=== PATIENT | female | born 2000 | race Caucasian/White ===

== ENCOUNTER 2022-08-20 20:06 | Inpatient (IN) ==
[2022-08-20 21:29] LABS: Appearance Urine Cloudy (Clear); Bacteria Urine Automated 1+ (Negative); Bilirubin Urine Negative (Negative); Blood Urine Trace (Negative); Color Urine Dark Yellow; Epithelial Cell Urine Auto >30 /lpf (0-5); Glucose Urine UA Negative (Negative); Ketones Urine 3+ (Negative); Leukocyte Esterase Urine 2+ (Negative); Nitrite Urine Negative (Negative); Protein Urine 1+ (Negative); Specific Gravity Urine 1.017 (1.000-1.030); Urobilinogen Urine Negative (Negative); WBC Urine Automated >30 /hpf (0-5); pH Urine 6.5 (4.5-7.5)
[2022-08-20 21:31] LABS: Basophils # (auto) 0.07 K/uL (0-0.2); Basophils % (auto) 0.5 %; Eosinophils % (auto) 0.8 %; Hematocrit (blood only) 32.5 % (37.0-47.0); Hemoglobin 10.8 g/dl (12.0-16.0); Immature Granulocytes # (auto) 0.12 K/uL (0.01-0.20); Immature Granulocytes % (auto) 0.9 %; Lymphocytes # (auto) 1.32 K/uL (1.2-3.4); Lymphocytes % (auto) 9.9 %; Mean Corpuscular Hemoglobin 26.5 pg (25.0-34.0); Mean Corpuscular Hgb Conc 33.2 g/dL (32.0-36.0); Mean Corpuscular Volume 79.9 fL (80.0-100.0); Mean Platelet Volume 10.1 fL (9.4-12.4); Monocytes # (auto) 0.75 K/uL (0.11-0.59); Monocytes % (auto) 5.6 %; Neutrophils # (auto) 10.93 K/uL (1.40-6.50); Neutrophils % (auto) 82.3 %; Platelet Count 328 K/uL (130-400); RDW Coefficient of Variation 14.6 % (11.5-14.5); RDW Standard Deviation 42.2 fL (36.4-46.3); Red Blood Count 4.07 M/uL (4.20-5.40); White Blood Count 13.29 K/ul (4.8-10.8)
[2022-08-20 21:56] LABS: Albumin Level 4.5 gm/dl (3.4-5.0); BUN Creatinine Ratio 11.6 (10-20); Calcium 10.4 mg/dl (8.5-10.1); Est GFR (African American) 145.2 ml/min; Est GFR (Non-African American) 125.3 ml/min; Globulin 4.6 gm/dl (2.5-4.0); Potassium 3.1 mmol/L (3.5-5.1); Total Protein 9.1 gm/dl (6.0-8.3)
[2022-08-20] MEDS ORDERED: cefTRIAXone SODIUM 2,000 MG/70 ML BAG IV STA (22:39)
[2022-08-20] MEDS ORDERED: SODIUM CHLORIDE 0.9% 1000ML 1,000 ML IV SCH (22:45)
[2022-08-20] MEDS ORDERED: ACETAMINOPHEN 1,000 MG/100 ML VIAL IV STA (22:49)
--- NOTE | 2022-08-20 23:15 | Emergency Department Note ---
History of Present Illness General Chief complaint: Fever Stated complaint: FEVER,CHILLS,SWEATING,SORETHROAT,BACK PAIN, UTI Time Seen by Provider: 08/20/22 22:37 History of Present Illness Maximum Pain Intensity: 5 This is a 22-year-old female presenting to the emergency department for ev aluation of fevers, chills, back pain, and UTI symptoms for the past 5 or 6 days. The patient initially went to an urgent care clinic at the onset of symptoms and was found to be as an incidental finding. She estimates that she is roughly 5 weeks , and this would be her first . The patient was started on Keflex 4 times a day and has been taking the medication as prescribed. Over the past 2 days she has developed a 101.9 F temperature at home as well as increasing back pain that is worse on the right than left. She still feels pain with urination and rates her discomfort a 5/10. The patient is usually healthy without additional chronic medical disease. She has yet to follow with [facility] for the . Past Med/Surg History Medical History Currently 5 weeks as of 08/20/2022 Surgical History No significant past surgical history Social History Smoking Status: Never smoker Feels Safe at Home: Yes Review of Systems A total of 10 systems reviewed and were otherwise negative Physical Exam Vital Signs Vital Signs - 24 hr 08/20/22 20:13 08/20/22 23:00 08/21/22 00:47 Temperature 36.9 C 36.5 C Temperature Source Temporal Artery Scan Oral Pulse Rate 141 H Pulse Rate [Finger] 100 H 73 Respiratory Rate 18 20 18 Respiratory Effort / Characteristics Non-Labored Respiratory Depth Normal Blood Pressure 142/94 H Blood Pressure [Right Arm] 134/74 102/64 Blood Pressure Mean 110 Blood Pressure Mean [Right Arm] 94 76 Blood Pressure Position [Right Arm] Pulse Oximetry 96 99 97 Oxygen Delivery Method Room Air Room Air Room Air Sepsis Recent Fever Within 48 Hours Yes Sepsis New/Unexplained Change in Mental Status No Sepsis Action Taken by Nursing No Action Required 08/21/22 02:37 08/21/22 05:00 08/21/22 07:00 Temperature Temperature Source Pulse Rate Pulse Rate [Finger] 85 67 78 Respiratory Rate 18 18 16 Respiratory Effort / Characteristics Respiratory Depth Normal Blood Pressure Blood Pressure [Right Arm] 121/66 120/75 120/78 Blood Pressure Mean Blood Pressure Mean [Right Arm] 84 90 92 Blood Pressure Position [Right Arm] Lying Pulse Oximetry 94 98 99 Oxygen Delivery Method Room Air Room Air Room Air Sepsis Recent Fever Within 48 Hours Sepsis New/Unexplained Change in Mental Status Sepsis Action Taken by Nursing VITALS: Vitals are noted on the nurse's note and reviewed by myself. Vital signs with tachycardia GENERAL: Well-developed, well-nourished, white female, who is in discomfort but overall pleasant and cooperative. HEAD: Normocephalic atraumatic. NECK: Supple without nuchal rigidity. No lymphadenopathy. No thyromegaly. Cervical spine is nontender. HEART: Regular rate and rhythm without murmurs gallops or rubs. LUNGS: Clear to auscultation bilaterally without wheezes, rales or rhonchi. No retractions or accessory muscle use. ABDOMEN: Positive normal bowel sounds x 4. Soft with mild suprapubic tenderness. There is additional left CVA tenderness. No rash. MUSCULOSKELETAL: No muscle atrophy, erythema, or edema noted. Full range of motion in all extremities. NEURO: Patient was alert and oriented to person place and time. CN II through XII grossly intact. Course Administered Medications Discontinued Medications Sodium Chloride (Nss 1000ml) 1,000 mls @ 999 mls/hr IV .Q1H1M JEWELL Stop: 08/20/22 23:45 Last Infusion: 08/20/22 23:54 Dose: 0 mls/hr Documented By: Admin: 08/20/22 22:53 Dose: 999 mls/hr Documented By: STUART Ceftriaxone Sodium (Rocephin) 2,000 mg in 70 mls @ 140 mls/hr IV NOW STA Stop: 08/20/22 23:08 Last Infusion: 08/20/22 23:54 Dose: 0 mls/hr Documented By: Admin: 08/20/22 22:53 Dose: 140 mls/hr Documented By: STUART Acetaminophen (Ofirmev) 1,000 mg in 100 mls @ 400 mls/hr IV NOW STA Stop: 08/20/22 23:03 Last Infusion: 08/20/22 23:54 Dose: 0 mls/hr Documented By: Admin: 08/20/22 22:59 Dose: 400 mls/hr Documented By: KT Medical Decision Making Differential Diagnosis Differential diagnosis: Etiologies such as biliary colic, cholecystitis, hepatitis, pancreatitis, cardiac disease, pancreatitis, gastritis, peptic ulcer disease, appendicitis, cystitis, diverticulitis, mesenteric ischemia, inflammatory bowel disease, ileus, bowel obstruction, testicular/adnexal torsion, aortic pathology, shingl es, as well as others were considered Laboratory Data 08/20/22 21:00 08/20/22 21:00 Lab Results 08/20/22 08/20/22 08/20/22 Range/Units 19:45 21:00 21:00 WBC 13.29 H (4.8-10.8) K/ul RBC 4.07 L (4.20-5.40) M/uL Hgb 10.8 L (12.0-16.0) g/dl Hct 32.5 L (37.0-47.0) % MCV 79.9 L (80.0-100.0) fL MCH 26.5 (25.0-34.0) pg MCHC 33.2 (32.0-36.0) g/dL RDW Std Deviation 42.2 (36.4-46.3) fL RDW Coeff of Raj 14.6 H (11.5-14.5) % Plt Count 328 (130-400) K/uL MPV 10.1 (9.4-12.4) fL Immature Gran % (Auto) 0.9 % Neut % (Auto) 82.3 % Lymph % (Auto) 9.9 % Mercer % (Auto) 5.6 % Eos % (Auto) 0.8 % Baso % (Auto) 0.5 % Neut # (Auto) 10.93 H (1.40-6.50) K/uL Lymph # (Auto) 1.32 (1.2-3.4) K/uL Mercer # (Auto) 0.75 H (0.11-0.59) K/uL Eos # (Auto) 0.10 (0-0.50) K/uL Baso # (Auto) 0.07 (0-0.2) K/uL Immature Gran # (Auto) 0.12 (0.01-0.20) K/uL Sodium 131 L (136-145) mmol/L Potassium 3.1 L (3.5-5.1) mmol/L Chloride 97 L (98-107) mmol/L Carbon Dioxide 22 (21-32) mmol/L Anion Gap 12 H (3-11) BUN 8 (6-23) mg/dl Creatinine 0.69 (0.6-1.2) mg/dl Est Cr Clr Drug Dosing 143.0 ml/min Est GFR ( Amer) 145.2 ml/min Est GFR (Non-Af Amer) 125.3 ml/min BUN/Creatinine Ratio 11.6 (10-20) Glucose 89 (70-99(Fasting)) mg/dl Lactate (0.4-2.0) mmol/L Calcium 10.4 H (8.5-10.1) mg/dl Total Bilirubin 1.0 (0.2-1.0) mg/dl AST 21 (13-39) U/L ALT 24 (7-52) U/L Alkaline Phosphatase 135 H (34-104) U/L Total Protein 9.1 H (6.0-8.3) gm/dl Albumin 4.5 (3.4-5.0) gm/dl Globulin 4.6 H (2.5-4.0) gm/dl Albumin/Globulin Ratio 1.0 (0.9-2) Urine Color Dark Yellow Urine Appearance Cloudy A (Clear) Urine pH 6.5 (4.5-7.5) Ur Specific Mer[place] 1.017 (1.000-1.030) Urine Protein 1+ H (Negative) Urine Glucose (UA) Negative (Negative) Urine Ketones 3+ H (Negative) Urine Blood Trace H (Negative) Urine Nitrite Negative (Negative) Urine Bilirubin Negative (Negative) Urine Urobilinogen Negative (Negative) Ur Leukocyte Esterase 2+ H (Negative) Urine WBC (Auto) >30 H (0-5) /hpf Urine RBC (Auto) 5-10 H (0-4) /hpf U Hyaline Cast (Auto) 5-10 H (0-5) /lpf U Epithel Cells (Auto) >30 H (0-5) /lpf Urine Bacteria (Auto) 1+ H (Negative) 08/20/22 Range/Units 23:36 WBC (4.8-10.8) K/ul RBC (4.20-5.40) M/uL Hgb (12.0-16.0) g/dl Hct (37.0-47.0) % MCV (80.0-100.0) fL MCH (25.0-34.0) pg MCHC (32.0-36.0) g/dL RDW Std Deviation (36.4-46.3) fL RDW Coeff of Raj (11.5-14.5) % Plt Count (130-400) K/uL MPV (9.4-12.4) fL Immature Gran % (Auto) % Neut % (Auto) % Lymph % (Auto) % Mercer % (Auto) % Eos % (Auto) % Baso % (Auto) % Neut # (Auto) (1.40-6.50) K/uL Lymph # (Auto) (1.2-3.4) K/uL Mercer # (Auto) (0.11-0.59) K/uL Eos # (Auto) (0-0.50) K/uL Baso # (Auto) (0-0.2) K/uL Immature Gran # (Auto) (0.01-0.20) K/uL Sodium (136-145) mmol/L Potassium (3.5-5.1) mmol/L Chloride (98-107) mmol/L Carbon Dioxide (21-32) mmol/L Anion Gap (3-11) BUN (6-23) mg/dl Creatinine (0.6-1.2) mg/dl Est Cr Clr Drug Dosing ml/min Est GFR ( Amer) ml/min Est GFR (Non-Af Amer) ml/min BUN/Creatinine Ratio (10-20) Glucose (70-99(Fasting)) mg/dl Lactate 0.6 (0.4-2.0) mmol/L Calcium (8.5-10.1) mg/dl Total Bilirubin (0.2-1.0) mg/dl AST (13-39) U/L ALT (7-52) U/L Alkaline Phosphatase (34-104) U/L Total Protein (6.0-8.3) gm/dl Albumin (3.4-5.0) gm/dl Globulin (2.5-4.0) gm/dl Albumin/Globulin Ratio (0.9-2) Urine Color Urine Appearance (Clear) Urine pH (4.5-7.5) Ur Specific Meriden (1.000-1.030) Urine Protein (Negative) Urine Glucose (UA) (Negative) Urine Ketones (Negative) Urine Blood (Negative) Urine Nitrite (Negative) Urine Bilirubin (Negative) Urine Urobilinogen (Negative) Ur Leukocyte Esterase (Negative) Urine WBC (Auto) (0-5) /hpf Urine RBC (Auto) (0-4) /hpf U Hyaline Cast (Auto) (0-5) /lpf U Epithel Cells (Auto) (0-5) /lpf Urine Bacteria (Auto) (Negative) Imaging Data Radiologist's Impression: Renal Ultrasound 08/20/22 22:58 RENAL ULTRASOUND CLINICAL HISTORY: +Preg. UTI. Eval for pyelo/abscess. COMPARISON STUDY: None. TECHNIQUE: Sonography of the kidneys and the urinary bladder was performed. FINDINGS: The right kidney measures 10.7 x 5.3 x 5.8 cm and the left measures 13.3 x 7.9 x 6 cm. There is no hydronephrosis. No right renal calculi are present. Echogenic foci within the left collecting system measure up to 1.8 cm. These favor calculi. Gas could appear similar but is considered less likely. Note is made of a 3.4 cm complex lesion within the upper pole of the left kidney which contains debris with fluid fluid level with possible thickened wall. Adjacent renal parenchyma is echogenic. There is associated urothelial thickening. Ureteral jets were visualized. There is bladder wall thickening. IMPRESSION: 1. No hydronephrosis. 2. 3.4 cm complex lesion within the upper pole of of the the left kidney which contains a fluid fluid level with possible thickened wall and urothelial thickening. Adjacent renal parenchyma is echogenic. Given the clinical history, this is suspicious for a renal abscess. Complex cystic renal lesion could appear similar but is considered less likely. 3. Echogenic foci within the left collecting system which measure up to 1.8 cm. These favor left renal calculi. Gas in the setting of an infectious process coul d appear similar but is considered less likely. 4. Bladder wall thickening. This may reflect cystitis. ACT 112: Negative or not required by law. Electronically signed by: Dimitri Evans M.D. 08/21/2022 6:38 AM Preliminary Findings Only See Final Report For Complete Findings US RENAL: 1.4 cm left renal pelvic calculus withou t hydronephrosis. 3 cm fluid collection in the left upper pole with a fluid debris level. Finding is concerning for either a calyceal diverticulum or an abscess. Unremarkable right kidney. Radiologist:Jonn Lemon M.D. [facility] Narrative Physical exam and history were performed. Nursing notes, EMR, and Medication List were personally reviewed. No social concerns were identified as barriers to patients care. Patient appears to have UTI symptoms for the past several days. She was started on Keflex at an urgent care clinic, but despite this continues to have worsening pain and now fevers over the past 1 to 2 days. Incidentally the patient found out that she was , and based on dates is a 5 weeks. IV access was established and labs were obtained. Blood cultures were performed. Lactic gathered. Urine collected. She was hydrated with normal saline and given IV Ty lenol. The patient's blood work is as above and was reviewed. She does have an elevated white blood cell count of 13.2. She is mildly anemic at 10.8. Potassium is 3.1. BUN and creatinine are normal. Lactic acid is normal. AST and ALT all normal. Alk phos is slightly elevated at 135. Urine appears markedly infected with blood, esterase, white cells, and bacteria. Blood and urine cultures are pending. Due to the elevated white count, fever, and concern for possible a sending urinary tract infection the patient was given 2 g IV Rocephin. She was sent to ultrasound for further imaging of her kidneys. Ultrasound was performed and reviewed by myself and radiology. The right kidney appears without significant findings, however the left kidney is concerning for a 3 cm left perinephric/renal abscess. Unfortunately this does correlate with her symptoms. I did reach out to the on-call urologist, Dr. Murphy, who also shares my concern that this is a renal abscess. Additionally there seems to be a large intrarenal kidney stone. The patient is considered high risk with the and abscess likely needs definitive interventional radiology treatment. Unfortunately we do not have this service available. Case management was brought into patient's care, and the patient is able to go to [facility]. Images were pushed to [facility]. I did reach out to [facility] in [place], and they do accept the patient in transfer. I spoke with Dr Barger from who suspects that patient will need minimum aspiration of the abscess if not full drainage. Dr. Benjamin is the accepting physician. Transfer paperwork was completed with the assistance of Dr Sanchez. Consent was signed by the patient. At this time we are awaiting bed assignment to arrange EMS transport. Case management is working on a preauthorization for ambulance transfer. The patient remained in stable condition until the time of shift change. At the time of shift change we are awaiting bed assignment and information on transfer time. The case was discussed with my colleague, Brandee Olmos PA-C, who will assume care at this time. Please see Ms. Olmos's dictation for further pa tient course, plan, and disposition time. The chart was completed utilizing [employer] Speech Voice Recognition Software. Grammatical errors, random word insertions, pronoun errors, and incomplete sentences are an occasional consequence of this system due to software limitations, ambient noise, and hardware issues. Any formal questions or concerns about the content, text, or information contained within the body of this dictation should be directly addressed to the provider for clarification. . Impression & Plan Kidney abscess, , UTI (urinary tract infection), Fever Discharge Plan Visit Data Chief Complaint: Fever Stated Complaint: FEVER,CHILLS,SWEATING,SORETHROAT,BACK PAIN, UTI ED Provider: Olivier Miller ED Midlevel Provider: Tiago Iyer Discharge Problem: Kidney abscess, , UTI (urinary tract infection), Fever Patient Disposition: Transfer Acute Care Hospital Forms Stand Alone Forms: [facility] Referrals Referrals: PCP,NO [Primary Care Provider] - : Qualifiers: Weeks of gestation: less than 8 weeks Qualified Code(s): Z3A.01 - Less than 8 weeks gestation of UTI (urinary tract infection) Qualifiers: Urinary tract infection type: acute cystitis Hematuria presence: with hematuria Qualified Code(s): N30.01 - Acute cystitis with hematuria Fever Qualifiers: Fever type: due to other condition Qualified Code(s): R50.81 - Fever presenting with conditions classified elsewhere
--- NOTE | 2022-08-21 06:40 | Ultrasound Report ---
RENAL ULTRASOUND CLINICAL HISTORY: +Preg. UTI. Eval for pyelo/abscess. COMPARISON STUDY: None. TECHNIQUE: Sonography of the kidneys and the urinary bladder was performed. FINDINGS: The right kidney measures 10.7 x 5.3 x 5.8 cm and the left measures 13.3 x 7.9 x 6 cm. Ther e is no hydronephrosis. No right renal calculi are present. Echogenic foci within the left collecting system measure up to 1.8 cm. These favor calculi. Gas could appear similar but is considered less li kortney. Note is made of a 3.4 cm complex lesion within the upper pole of the left kidney which contains debris with fluid fluid level with possible thickened wall. Adjacent renal parenchyma is echogenic. There is associated urothelial thickening. Ureteral jets were visualized. There is bladder wall thick ening. IMPRESSION: 1. No hydronephrosis. 2. 3.4 cm complex lesion within the upper pole of of the the left kidney which contains a fluid fluid level with possible thickened wall and urothelial thickening. Adjacent renal parenchyma is echogenic . Given the clinical history, this is suspicious for a renal abscess. Complex cystic renal lesion cou ld appear similar but is considered less likely. 3. Echogenic foci within the left collecting system which measure up to 1.8 cm. These favor left jacob l calculi. Gas in the setting of an infectious process could appear similar but is considered less li kortney. 4. Bladder wall thickening. This may reflect cystitis. ACT 112: Negative or not required by law. Electronically signed by: Dimitri Evans M.D. 08/21/2022 6:38 AM
--- NOTE | 2022-08-21 09:08 | Emergency Department Note ---
ED Visit Note This case was signed out to me by Tiago Iyer PA-C due to change of shift. Please refer to his dictation for full details. The patient is a 22-year-old female who is approximately 5 weeks who was found to have a 3 cm left perinephritic/renal abscess on ultrasound. The patient was awaiting transfer to [facility] in [place] for further evaluation and treatment by interventional radiology. On my initial evaluation of the patient she was in no acute distress and declined any pain. Vital signs remained stable. Around 9:30 AM Case management came to me stating that they were having problems with her insurance for the transfer to [facility]. Apparently her insurance requires a prior Auth that was not going to be available for a couple days. It was also found that since [facility] is out of network that the patient may have to pay most of the bill [id number]. I therefore discussed transfer to either [facility] or [facility] with the patient. The patient was okay with transfer to [facility]. I spoke with the transfer center at [facility] who will accept the patient in transfer. Dr. Valderrama will be the accepting physician. However, no beds were available at this time. The patient continued to be observed in the emergency department pending transfer. She did not require any additional medication or treatment while in the emergency department during my shift. The patient will be due for a second dose of Rocephin at 11 PM and order had been placed if she remained in the emergency department. Due to change in shift, the patient's care was then signed out to Brenda SOLIS. Please refer to her dictaction for further details. We had contacted [facility] and there was still no available bed at the time of change in shift. The patient's care was transferred in stable condition. : Qualifiers: Weeks of gestation: less than 8 weeks Qualified Code(s): Z3A.01 - Less than 8 weeks gestation of UTI (urinary tract infection) Qualifiers: Urinary tract infection type: acute cystitis Hematuria presence: with hematuria Qualified Code(s): N30.01 - Acute cystitis with hematuria Fever Qualifiers: Fever type: due to other condition Qualified Code(s): R50.81 - Fever presenting with conditions classified elsewhere
[2022-08-21] MEDS ORDERED: SODIUM CHLORIDE 0.9% 1000ML 1,000 ML IV SCH (17:15)
--- NOTE | 2022-08-21 18:26 | Emergency Department Note ---
ED Visit Note I received sign out from Julieta Olmos PA-C at change of shift. Patient was diagnosed with pyelonephritis and renal abscess of the left kidney. She is awaiting transfer to [facility] to be evaluated by IR for possible drainage of the abscess. We are currently awaiting bed availability. Patient has been in the ED waiting for transfer for nearly 24 hours, I rechecked with the charge nurse and personal secretary and there is still no bed availability and no idea as to when this will occur. I spoke with Dr. Marx, [facility] Hospitalist, who agreed to admit the patient in the interim while she is awaiting her transfer. I evaluated the patient, she is well-appearing, nontoxic and afebrile, hemodynamically stable. Pain is well controlled. She remains n.p.o. The patient was updated on plan for admission here while she waits for transfer, she verbalized understanding and was agreeable to the plan. The chart was completed utilizing [employer] Speech voice recognition software. Grammatical errors, random word insertions, pronoun errors, and incomplete sentences are an occasional consequence of this system due to software limitat ions, ambient noise, and hardware issues. Any formal questions or concerns about the content, text, or information contained within the body of this dictation should be directly addressed to the nurse practitioner for clarification. : Qualifiers: Weeks of gestation: less than 8 weeks Qualified Code(s): Z3A.01 - Less than 8 weeks gestation of UTI (urinary tract infection) Qualifiers: Urinary tract infection type: acute cystitis Hematuria presence: with hematuria Qualified Code(s): N30.01 - Acute cystitis with hematuria Fever Qualifiers: Fever type: due to other condition Qualified Code(s): R50.81 - Fever presenting with conditions classified elsewhere
[2022-08-21] MEDS ORDERED: ACETAMINOPHEN 325 MG TAB PO PRN (19:02)
--- NOTE | 2022-08-21 19:33 | History & Physical Report ---
Date of Service August 21, 2022 Assessment & Plan (1) Kidney abscess: Plan: REnal Abscess - US: 1. No hydronephrosis. 2. 3.4 cm complex lesion within the upper pole of of the the left kidney which contains a fluid fluid level with possible thickened wall and urothelial thickening. Adjacent renal parenchyma is echogenic. Given the clinical history, this is suspicious for a renal abscess. Complex cystic renal lesion could appear similar but is considered less likely. 3. Echogenic foci within the left collecting system which measure up to 1.8 cm. These favor left renal calculi. Gas in the setting of an infectious process could appear similar but is c onsidered less likely.4. Bladder wall thickening. This may reflect cystitis. Continue Rocephin Urology following Is not currently septic, hemodynamically stable at assessment with normal blood pressure and no tachycardia. Recommend patient be transferred for IR capability as soon as available. In the meantime we will continue antibiotics, keep n.p.o., continue fluids and follow (2) : Plan: By POC at urgent care Approximately 5 weeks Has not established with OB or had care before. Can facilitate appointments as needed with CM DVT prophylaxis: Low risk SCDs Diet: N.p.o. 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 She is subsequently seen at urgent care and was diagnosed with UTI and put on Keflex. POC test was positive at that time, patient estimates about 5 weeks . Patient did not clinically improve and continued to be febrile at home with increasing pain on Keflex and presented to the ER for further evaluation. Renal ultrasound as inpatient shows 3.4 cm complex lesion within the upper pole of of the the left kidney which contains a fluid fluid level with possible thickened wall and urothelial thickening. Adjacent renal parenchyma is echogenic. Given the clinical history, this is suspicious for a renal abscess. Patient was recommended for transfer to [place] for IR and was accepted, but no bed is yet available. Patient is not able to be transferred to [facility], [place], or [place]. Patient was in the ER as a hold for 24 hours, due to a bed delay was recommended for medical admission. Case was reviewed with urology, and as patient is not currently septic will be admitted for medical management pending transfer. At bedside she reports she feels okay, still has some left sided back pain and occasional feelings of being flushed. She does not have any chest pain, chest pressure, nausea, vomiting, diarrhea, constipation. Did have dysuria, thinks this may be a little better. Patient reports she is aware that she is , does not know how she feels about this yet. Is aware that we will avoid radiation and limit medications based on 5-week . Expressed no other questions or concerns at bedside. No medical history. Takes no chronic medications. Denies tobacco/alcohol use. Full code. Allergies Allergy/AdvReac Type Severity Reaction Status Date / Time No Known Allergies Allergy Verified 08/21/22 15:20 Home Medications Medication Instructions Recorded Confirmed Type cephalexin 500 mg capsule 500 mg PO Q6H 08/21/22 08/21/22 History Past Med/Surg History Medical History Currently 5 weeks as of 08/20/2022 Surgical History No significant past surgical history Social History Smoking Status: Never smoker Feels Safe at Home: Yes Review of Systems Review of Systems: All systems reviewed & are unremarkable except as noted in HPI & below Physical Exam Physical Exam: General: A&Ox3. NAD. Cooperative. Appears slightly flushed HEENT: Atraumatic, normocephalic. Vision/hearing intact Pulm: CTAB A&P. -wheezes, -rales, -rhonchi. Symmetrical chest rise. No increased work of breathing. No respiratory distress. Cardiac: RRR, -mrg. Radial pulses intact and symmetrical. Abdominal: Left CVA tenderness. Mild discomfort on abdominal palpation, no rebound/guarding. Extremities: Warm, dry. Sensation intact in upper and lower extremities, moves all extremities equally Results & Data Results & Data ([facility]) Vital Signs (Past 12 Hours) Vital Signs Temp Pulse Resp BP Pulse Ox O2 Del Method 08/21/22 18:35 78 19 103/56 L 95 Room Air 08/21/22 14:13 106 H 18 124/71 99 Room Air 08/21/22 12:17 37.4 C 96 H 18 128/68 99 Room Air 08/21/22 10:57 98 H 18 145/84 H 100 08/21/22 09:24 75 18 116/58 L 99 Room Air Code Status & VTE Plan VTE Prophylaxis Plan VTE Prophylaxis will be ordered: Yes PG Care Time/CCT Total # of Minutes Spent Total Time Spent with Patient: Total time spent is greater than 50% in coordination of care (as documented) at patient's floor/unit and/or counseling patient: Coding Level of Care Code 29214 INT INP/OBS CARE 2/55MIN Diagnoses Kidney abscess N15.1 Z3A.01 Weeks of gestation: less than 8 weeks (1) Weeks of gestation: less than 8 weeks Qualified Code(s): Z3A.01 - Less than 8 weeks gestation of
--- NOTE | 2022-08-21 19:51 | Urology Consultation ---
Date of Consultation August 21, 2022 Assessment & Plan (1) : (2) UTI (urinary tract infection): (3) Kidney abscess: Plan 22-year-old female who is 5 weeks who presented with concerns for UTI and possible left renal abscess based on renal ultrasound. Agree with admission here and continued antibiotics while patient awaits transfer. Do agree with transfer to a place with interventional radiology as the patient may require percutaneous drainage and we do not have that capability here. If patient were to decompensate while still here, recommend Tuttle catheter placement No surgical urologic intervention necessary at this point Urology to follow peripherally History of Present Illness Reason for Consultation: Possible left renal abscess in the setting of History of Present Illness 22-year-old female who presented to the hospital with 6 days of fever chills and back pain and burning with urination. She was afebrile with stable blood pressures. She was tachycardic initially but is now nontachycardic. Initial labs showed a leukocytosis of 13.2, creatinine of 0.69, and a urinalysis that was nitrite negative, 2+ leukocyte Estrace, greater than 30 WBCs, 5-10 RBCs and 1+ bacteria. A test was positive so they obtained a renal ultrasound which I independently reviewed. This does not show any hydronephrosis but does show a 3.4 cm complex upper pole collection in the left kidney suspicious for renal abscess. There is also an echogenic foci within the left collecting system measuring 1 to 1.8 cm which favors a renal calculus. She was started on ceftriaxone. Transfer was requested due to possible need for IR drainage as we do not have that capability here but this is still pending so she will be admitted for observation. Patient reports feeling better now than upon arrival. She has no other health issues. She does have a history of recurrent UTIs. No previous surgeries. No smoking history. No family history. Allergies Allergy/AdvReac Type Severity Reaction Status Date / Time No Known Allergies Allergy Verified 08/21/22 15:20 Home Medications Medication Instructions Recorded Confirmed Type cephalexin 500 mg capsule 500 mg PO Q6H 08/21/22 08/21/22 History Patient History Medical History Currently 5 weeks as of 08/20/2022 Surgical History No significant past surgical history Social History Smoking Status: Never smoker Feels Safe at Home: Yes Review of Systems Review of Systems: 14 point review of systems negative outside of what is listed above in HPI Physical Exam Physical Exam: General: Alert and oriented, no acute distress HEENT: Normocephalic, mucous membranes moist Pulmonary: Nonlabored respirations Abdomen: Nondistended : Mild left CVA tenderness. Extremities: Moves all 4 spontaneously Neuro: No gross deficits Skin: Warm, dry, no rashes noted Results & Data ([facility]) Vital Signs (Past 12 Hours) Vital Signs Temp Pulse Resp BP Pulse Ox O2 Del Method 08/21/22 18:35 78 19 103/56 L 95 Room Air 08/21/22 14:13 106 H 18 124/71 99 Room Air 08/21/22 12:17 37.4 C 96 H 18 128/68 99 Room Air 08/21/22 10:57 98 H 18 145/84 H 100 08/21/22 09:24 75 18 116/58 L 99 Room Air PG Care Time/CCT Total # of Minutes Spent Total Time Spent with Patient: Total time spent is greater than 50% in coordination of care (as documented) at patient's floor/unit and/or counseling patient: Coding Level of Care Code INP/OBS CONSULT LVL 3, 45 MIN Diagnoses Z3A.01 Weeks of gestation: less than 8 weeks UTI (urinary tract infection) N30.01 Hematuria presence: with hematuria Urinary tract infection type: acute cystitis Kidney abscess N15.1 (1) Weeks of gestation: less than 8 weeks Qualified Code(s): Z3A.01 - Less than 8 weeks gestation of (2) UTI (urinary tract infection) Hematuria presence: with hematuria Urinary tract infection type: acute cystitis Qualified Code(s): N30.01 - Acute cystitis with hematuria
[2022-08-21] MEDS: NORMOSOL-R 1,000 ML IV SCH (20:32)
[2022-08-21] MEDS ORDERED: cefTRIAXone SODIUM 2,000 MG/70 ML BAG IV ONE (23:00)
[2022-08-22] MEDS: NORMOSOL-R 1,000 ML IV SCH (05:08)
[2022-08-22 07:22] LABS: Basophils # (auto) 0.08 K/uL (0-0.2); Basophils % (auto) 0.7 %; Eosinophils # (auto) 0.26 K/uL (0-0.50); Eosinophils % (auto) 2.4 %; Hematocrit (blood only) 28.8 % (37.0-47.0); Hemoglobin 9.5 g/dl (12.0-16.0); Immature Granulocytes # (auto) 0.29 K/uL (0.01-0.20); Immature Granulocytes % (auto) 2.6 %; Lymphocytes # (auto) 1.97 K/uL (1.2-3.4); Lymphocytes % (auto) 17.9 %; Mean Corpuscular Hemoglobin 26.8 pg (25.0-34.0); Mean Corpuscular Volume 81.4 fL (80.0-100.0); Mean Platelet Volume 9.7 fL (9.4-12.4); Monocytes # (auto) 1.29 K/uL (0.11-0.59); Monocytes % (auto) 11.7 %; Neutrophils # (auto) 7.13 K/uL (1.40-6.50); Neutrophils % (auto) 64.7 %; Platelet Count 255 K/uL (130-400); RDW Coefficient of Variation 14.3 % (11.5-14.5); RDW Standard Deviation 42.9 fL (36.4-46.3); Red Blood Count 3.54 M/uL (4.20-5.40); White Blood Count 11.02 K/ul (4.8-10.8)
[2022-08-22 07:47] LABS: Anion Gap 10 (3-11); BUN Creatinine Ratio 12.5 (10-20); Blood Urea Nitrogen 6 mg/dl (6-23); Calcium 9.4 mg/dl (8.5-10.1); Carbon Dioxide 22 mmol/L (21-32); Chloride 103 mmol/L (98-107); Creatinine Clr Calc Pharmacy 205.2 ml/min; Est GFR (African American) > 150.0 ml/min; Est GFR (Non-African American) 141.2 ml/min; Glucose 67 mg/dl (70-99(Fasting)); Potassium 3.7 mmol/L (3.5-5.1); Sodium 135 mmol/L (136-145)
[2022-08-22] MEDS ORDERED: FLUARIX QUADRIVALENT 0.5 ML SYR IM ONE (08:00)
--- NOTE | 2022-08-22 16:08 | Discharge Summary ---
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 She is subsequently seen at urgent care and was diagnosed with UTI and put on Keflex. POC test was positive at that time, patient estimates about 5 weeks . Patient did not clinically improve and continued to be febrile at home with increasing pain on Keflex and presented to the ER for further evaluation. Renal ultrasound as inpatient shows 3.4 cm complex lesion within the upper pole of of the the left kidney which contains a fluid fluid level with possible thickened wall and urothelial thickening. Adjacent renal parenchyma is echogenic. Given the clinical history, this is suspicious for a renal abscess. Patient was recommended for transfer to [place] for IR and was accepted, but no bed is yet available. Patient is not able to be transferred to [facility], [place], or [place]. Patient was in the ER as a hold for 24 hours, due to a bed delay was recommended for medical admission. Case was reviewed with urology, and as patient is not currently septic will be admitted for medical management pending transfer. At bedside she reports she feels okay, still has some left sided back pain and occasional feelings of being flushed. She does not have any chest pain, chest pressure, nausea, vomiting, diarrhea, constipation. Did have dysuria, thinks this may be a little better. Patient reports she is aware that she is , does not know how she feels about this yet. Is aware that we will avoid radiation and limit medications based on 5-week . Expressed no other questions or concerns at bedside. No medical history. Takes no chronic medications. Denies tobacco/alcohol use. Full code. Principal Diagnosis Renal abscess Discharge Data Allergies Allergy/AdvReac Type Severity Reaction Status Date / Time No Known Allergies Allergy Verified 08/21/22 15:20 Consultations 08/21/22 18:53 ED Decision to Admit Stat 08/21/22 20:26 Consult Urology Routine Ordered Studies 08/20/22 22:58 US Kidney Bladder [US renal/blad retro comp] Urgent Hospital Course (1) Kidney abscess: Patient admitted by Dr. Marx pending bed availability/transfer to tertiary care. She was assigned to my service this morning, but prior to myself or resident physician seeing her, she was transferred to [place] early this morning. Plan below as per admitting H&P, plan ongoing as per tertiary care. REnal Abscess - US: 1. No hydronephrosis. 2. 3.4 cm complex lesion within the upper pole of of the the left kidney which contains a fluid fluid level with possible thickened wall and urothelial th ickening. Adjacent renal parenchyma is echogenic. Given the clinical history, this is suspicious for a renal abscess. Complex cystic renal lesion could appear similar but is considered less likely. 3. Echogenic foci within the left collecting system which measure up to 1.8 cm. These favor left renal calculi. Gas in the setting of an infectious process could appear similar but is considered less likely.4. Bladder wall thickening. This may reflect cystitis. Continue Rocephin Urology following Is not currently septic, hemodynamically stable at assessment with normal blood pressure and no tachycardia. Recommend patient be transferred for IR capability as soon as available. In the meantime we will continue antibiotics, keep n.p.o., continue fluids and follow (2) : By POC at urgent care Approximately 5 weeks Has not established with OB or had care before. Can facilitate appointments as needed with CM DVT prophylaxis: Low risk SCDs Diet: N.p.o. pending transfer for IR, continue IV FM CODE STATUS: Full code Dispo: Medical surgical Total Time Total Time Spent Total Time Spent (In Minutes): Not seen Discharge Plan Discharge Items Patient Disposition: Transfer Acute Care Hospital Reason For Visit: RENAL ABSCESS PENDING TRANSFER Discharge Diagnosis: Renal abscess Activity: Per Instructions section Non-emergency contact: Primary Care Provider and Urologist Call non-emergency contact if: you have any medication questions Follow-up/Referrals: PCP,NO [Primary Care Provider] - Diet: Regular Addtl Attending Provider Instructions: Renal Abscess - US:1. No hydronephrosis. 2. 3.4 cm complex lesion within the upper pole of of the the left kidney which contains a fluid fluid level with possible thickened wall and urothelial thickening. Adjacent renal parenchyma is echogenic. Given the clinical history, this is suspicious for a renal abscess. Complex cystic renal lesion could appear similar but is considered less likely. 3. Echogenic foci within the left collecting system which measure up to 1.8 cm. These favor left renal calculi. Gas in the setting of an infectious process could appear similar but is considered less likely.4. Bladder wall thickening. This may reflect cystitis. Continue Rocephin Urology following Is not currently septic, hemodynamically stable at assessment with normal blood pressure and no tachycardia. Recommend patient be transferred for IR capability as soon as available. In the meantime we will continue antibiotics, keep n.p.o., continue fluids and follow (2) : Plan: By POC at urgent care Approximately 5 weeks Has not established with OB or had care before. Can facilitate appointments as needed with CM DVT prophylaxis: Low risk SCDs Diet: N.p.o. pending transfer for IR, continue IV FM CODE STATUS: Full code Dispo: Transfer to [facility] Pending Studies at Discharge: No Stand-Alone Forms: My [facility] Skilled Items Patient informed of condition?: Yes DNR: No Discharge Level of Care: Other Communicable Disease: No Discharge Prognosis: Stable Lines: Peripheral IV Urinary Catheter: No Medications and DC Order Prescriptions: Discontinued cephalexin 500 mg capsule 500 mg PO Q6H Rx Instructions: STARTED 08/16/22 FOR 7 DAYS Discharge Orders: Discharge Order (Routine); Ordered 08/22/22 Ordered By: Juan Miguel Nunez Admission Data Admit Date/Time: 08/21/22 19:02 Attending Provider: Isaac Marx Admit Provider: Isaac Marx Primary Care Provider: PCP,NO Other Providers: Remigio Swain ; Isaac Marx Other Interventions: Discharge Summary Assessment (RN) Last Done: 08/22/22 04:36 Coding Level of Care Code None Diagnoses Kidney abscess N15.1 Z3A.01 Weeks of gestation: less than 8 weeks
[2022-08-22] MEDS ORDERED: cefTRIAXone SODIUM 2,000 MG in DEXTROSE 5% 50 ML IV SCH (23:00)
== END 2022-08-22 07:49 | disposition short-term general hospital (02) | DRG 831 ==
LOC: ED 20:06 → 3W 08-21 19:02

== ENCOUNTER 2022-09-02 19:53 | Inpatient (IN) ==
[2022-09-02] MEDS ORDERED: ACETAMINOPHEN 1,000 MG/100 ML VIAL IV STA (20:24)
[2022-09-02] MEDS ORDERED: CEFEPIME 2,000 MG/20 ML VIAL IV STA (20:38)
[2022-09-02] MEDS: SODIUM CHLORIDE 0.9% 1000ML 1,000 ML IV SCH ×2 (21:07→23:27)
[2022-09-02 21:24] LABS: Basophils # (auto) 0.06 K/uL (0-0.2); Basophils % (auto) 0.5 %; Eosinophils # (auto) 0.11 K/uL (0-0.50); Eosinophils % (auto) 0.9 %; Hematocrit (blood only) 30.6 % (37.0-47.0); Hemoglobin 10.4 g/dl (12.0-16.0); Immature Granulocytes # (auto) 0.08 K/uL (0.01-0.20); Immature Granulocytes % (auto) 0.6 %; Lymphocytes # (auto) 0.68 K/uL (1.2-3.4); Lymphocytes % (auto) 5.5 %; Mean Corpuscular Hemoglobin 26.7 pg (25.0-34.0); Mean Corpuscular Volume 78.5 fL (80.0-100.0); Mean Platelet Volume 10.2 fL (9.4-12.4); Monocytes # (auto) 0.68 K/uL (0.11-0.59); Monocytes % (auto) 5.5 %; Neutrophils # (auto) 10.83 K/uL (1.40-6.50); Platelet Count 365 K/uL (130-400); RDW Standard Deviation 42.2 fL (36.4-46.3); White Blood Count 12.44 K/ul (4.8-10.8)
[2022-09-02 21:37] LABS: Appearance Urine Clear (Clear); Bacteria Urine Automated Negative (Negative); Bilirubin Urine Negative (Negative); Blood Urine 2+ (Negative); Color Urine Yellow; Epithelial Cell Urine Auto >30 /lpf (0-5); Glucose Urine UA Negative (Negative); Ketones Urine Negative (Negative); Leukocyte Esterase Urine 1+ (Negative); Nitrite Urine Negative (Negative); Protein Urine 2+ (Negative); RBC Urine Automated >30 /hpf (0-4); Specific Gravity Urine 1.008 (1.000-1.030); Urobilinogen Urine Negative (Negative)
[2022-09-02 22:11] LABS: Influenza A virus by PCR Negative (Neg); Influenza B virus by PCR Negative (Neg); RSV by PCR Negative (Neg); SARS CoV2 RNA(COVID-19) Ceph NEGATIVE (Negative)
[2022-09-02 22:32] LABS: Alanine Aminotransferase 18 U/L (7-52); Albumin Level 3.9 gm/dl (3.4-5.0); Alkaline Phosphatase 84 U/L (34-104); Anion Gap 8 (3-11); Aspartate Aminotransferase 13 U/L (13-39); BUN Creatinine Ratio 11.1 (10-20); Bilirubin Direct 0.1 mg/dl (0-0.2); Bilirubin,Total 0.4 mg/dl (0.2-1.0); Blood Urea Nitrogen 5 mg/dl (6-23); Calcium 9.2 mg/dl (8.5-10.1); Carbon Dioxide 20 mmol/L (21-32); Chloride 104 mmol/L (98-107); Creatinine Clr Calc Pharmacy 209.7 ml/min; Est GFR (African American) > 150.0 ml/min; Est GFR (Non-African American) 144.2 ml/min; Glucose 90 mg/dl (70-99(Fasting)); Magnesium 1.7 mg/dl (1.7-2.4); Potassium 3.5 mmol/L (3.5-5.1); Sodium 132 mmol/L (136-145); Total Protein 7.5 gm/dl (6.0-8.3)
--- NOTE | 2022-09-03 00:51 | History & Physical Report ---
Date of Service September 03, 2022 Assessment & Plan (1) Fever: Plan: 22yo Female PMH depression currently 7 weeks here for fever ongoing 1 day. Fever -given cefepime in ED -CXR negative -statrad renal ultrasound found cyst in left upper pole, kidney stone in left lower pole, patent uretal jets b/l, stent located in bladder -elevated WBC 12.44, lactate procal neg -will continue cefepime -PRN tylenol -UA + for infection -blood cultures and urine cultures pending -consulted Urology for stent removal Anemia -hbg 10.4 noted earlier this year -continue vitamin supplement with iron 7 weeks - ultrasound confirmed live fetus -continue vitamins -consulted OBGYN -avoid radiation imaging at this time -prior visit patient had not found OBGYN yet FENa: regular Code Status: full Dispo: med/surg Lillian Le D.O. PGY 2, FCM (2) UTI (urinary tract infection): (3) : History of Present Illness Chief Complaint: Fever Primary Care Provider: NO PCP 22yo Female PMH depression currently 7 weeks here for fever ongoing 1 day. Patient states several weeks ago she came to [facility] was found to be concerning for left kidney abcess transferred to [facility] for IR. Also noted to have a kidney stone in L lower pole. At [facility] they determined she did not have an abcess more likely to be a cyst, placed her on antibiotics cefuroxime, placed a stent in her left kidney sent her home. Patient states since she left the hospital she has been getting more urinary frequency, as of today began having fever chills fatigue SOB with exertion nausea confusion brain fog burning with urination and constipation. Several weeks ago prior to hospitalization, patient discovered she was , discontinued her celexa at that time. Patient denies any other PMH or medications, not on alcohol or smoking. Allergies Allergy/AdvReac Type Severity Reaction Status Date / Time No Known Allergies Allergy Verified 09/02/22 21:35 Home Medications Medication Instructions Recorded Confirmed Type cefuroxime axetil 500 mg tablet 500 mg PO BID 09/02/22 09/02/22 History multivit-iron 18 mg-folic acid 400 1 tab PO DAILY 09/02/22 09/02/22 History mcg-calcium 500 mg-minerals tablet (Women's One Daily) Past Med/Surg History Medical History Currently 5 weeks as of 08/20/2022 Surgical History No significant past surgical history Social History Smoking Status: Never smoker Hx Alcohol Use: No Hx Substance Use: No Preferred Language: Jordanian Communication Ability: Effective Engineering Consultant Required: No Beliefs That Will Affect Care: None Current Living Situation: Other Current Living Situation Comment: Lives in an apartment with roommates Feels Safe at Home: Yes Assistive Devices: None Review of Systems Review of Systems: see hpi Physical Exam Constitutional: WD/WN, vitals as above cooperative and comfortable Eyes: PERRL, conjunctivae normal, anicteric sclerae ENMT: external ear and nose normal, oropharynx normal Neck: trachea midline, no thyromegaly Respiratory: normal respiratory effort, lungs clear to auscultation Cardiovascular: RRR, no murmur, no edema Gastrointestinal (Abdomen): Inspection/Auscultation: abdomen normal to inspection Percussion/Palpation: abdomen soft mild periumbilical tenderness on palpation Skin: no rashes, warm and dry Results & Data Results & Data ([facility]) Vital Signs (Past 12 Hours) Vital Signs Temp Pulse Resp BP BP Pulse Ox O2 Del Method 09/03/22 00:00 92 H 19 100 09/02/22 23:50 97 H 22 99 09/02/22 23:40 94 H 21 99 09/02/22 23:30 95 H 21 98 09/02/22 23:29 20 112/64 98 Room Air 09/02/22 23:00 98 Room Air 09/02/22 21:25 134 H 09/02/22 20:15 38.2 C H 156 H 16 144/93 H 98 Room Air Resident Activity Tracking Resident Involvement: Resident Care Provided Care Provided: Adult Hospital Medicine (1) Fever Fever type: due to other condition Qualified Code(s): R50.81 - Fever presenting with conditions classified elsewhere (2) UTI (urinary tract infection) Hematuria presence: with hematuria Urinary tract infection type: acute cystitis Qualified Code(s): N30.01 - Acute cystitis with hematuria (3) Weeks of gestation: less than 8 weeks Qualified Code(s): Z3A.01 - Less than 8 weeks gestation of
[2022-09-03] MEDS: SODIUM CHLORIDE 0.9% 1000ML 1,000 ML IV SCH ×5 (01:08→18:10)
--- NOTE | 2022-09-03 01:23 | Emergency Department Note ---
History of Present Illness General Chief complaint: Fever Stated complaint: FEVER,CHILLS,SOB,HX OF KIDNEY INFECTION Time Seen by Provider: 09/02/22 20:22 History of Present Illness Provider complaint: Fever Onset (ago): hour(s) 7 Maximum Pain Intensity: 3 Associated symptoms: + fever/chills 22-year-old female at 8 weeks presents emergency department for fever. Patient states she started having fever at 3 PM and left-sided flank pain with dysuria. No hematuria. No nausea or vomiting. No chest pain difficulty breathing or cough. No headaches. Patient states she was recently discharged from [facility] 1 week ago on cefuroxime after having a stent placed in her ureter. Patient states she was sent there after being admitted at this facility and was transferred to [facility] because they were concerned she had a renal abscess. Patient reports that once that she got to [facility] they told her she did not have a renal abscess but instead had a renal cyst, she states no surgical or interventional radiology procedure was performed on her. Home Medications Medication Instructions Recorded Confirmed Type cefuroxime axetil 500 mg tablet 500 mg PO BID 09/02/22 09/02/22 History multivit-iron 18 mg-folic acid 400 1 tab PO DAILY 09/02/22 09/02/22 History mcg-calcium 500 mg-minerals tablet (Women's One Daily) Allergies Allergy/AdvReac Type Severity Reaction Status Date / Time No Known Allergies Allergy Verified 09/02/22 21:35 Past Med/Surg History Medical History Currently 5 weeks as of 08/20/2022 UTI (urinary tract infection) Surgical History No significant past surgical history Social History Smoking Status: Never smoker Hx Alcohol Use: No Hx Substance Use: No Preferred Language: Turkmen Communication Ability: Effective 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 Required: No Beliefs That Will Affect Care: None Current Living Situation: Other Current Living Situation Comment: Lives in an apartment with roommates Feels Safe at Home: Yes Assistive Devices: None Physical Exam Vital Signs Vital Signs - 24 hr 09/02/22 20:15 09/02/22 21:25 09/02/22 23:00 Temperature 38.2 C H Temperature Source Temporal Artery Scan Pulse Rate 156 H 134 H Pulse Rate from SpO2 Sensor Respiratory Rate 16 Respiratory Effort / Characteristics Non-Labored Spontaneous Respiratory Depth Normal Respiratory Pattern Regular Blood Pressure 144/93 H Blood Pressure [Right Arm] Blood Pressure Mean 110 Blood Pressure Mean [Right Arm] Pulse Oximetry 98 98 Oxygen Delivery Method Room Air Room Air Sepsis Recent Fever Within 48 Hours Yes Sepsis New/Unexplained Change in Mental Status N/A Sepsis Action Taken by Nursing No Action Required 09/02/22 23:29 09/02/22 23:30 09/02/22 23:40 Temperature Temperature Source Pulse Rate 95 H 94 H Pulse Rate from SpO2 Sensor Respiratory Rate 20 21 21 Respiratory Effort / Characteristics Non-Labored Spontaneous Respiratory Depth Normal Respiratory Pattern Blood Pressure Blood Pressure [Right Arm] 112/64 Blood Pressure Mean Blood Pressure Mean [Right Arm] 80 Pulse Oximetry 98 98 99 Oxygen Delivery Method Room Air Sepsis Recent Fever Within 48 Hours Sepsis New/Unexplained Change in Mental Status Sepsis Action Taken by Nursing 09/02/22 23:50 09/03/22 00:00 09/03/22 00:04 Temperature Temperature Source Pulse Rate 97 H 92 H 99 H Pulse Rate from SpO2 Sensor 99 H Respiratory Rate 22 19 19 Respiratory Effort / Characteristics Respiratory Depth Respiratory Pattern Blood Pressure 119/65 Blood Pressure [Right Arm] Blood Pressure Mean 83 Blood Pressure Mean [Right Arm] Pulse Oximetry 99 100 100 Oxygen Delivery Method Sepsis Recent Fever Within 48 Hours Sepsis New/Unexplained Change in Mental Status Sepsis Action Taken by Nursing 09/03/22 00:10 09/03/22 00:15 09/03/22 00:20 Temperature Temperature Source Pulse Rate 94 H 92 H 93 H Pulse Rate from SpO2 Sensor 94 H 92 H 95 H Respiratory Rate 20 20 19 Respiratory Effort / Characteristics Respiratory Depth Respiratory Pattern Blood Pressure 109/64 Blood Pressure [Right Arm] Blood Pressure Mean 79 Blood Pressure Mean [Right Arm] Pulse Oximetry 100 100 100 Oxygen Delivery Method Sepsis Recent Fever Within 48 Hours Sepsis New/Unexplained Change in Mental Status Sepsis Action Taken by Nursing 09/03/22 00:32 09/03/22 00:40 09/03/22 00:45 Temperature Temperature Source Pulse Rate 102 H 110 H Pulse Rate from SpO2 Sensor 103 H 111 H Respiratory Rate 21 22 Respiratory Effort / Characteristics Respiratory Depth Respiratory Pattern Blood Pressure 130/74 116/74 Blood Pressure [Right Arm] Blood Pressure Mean 92 88 Blood Pressure Mean [Right Arm] Pulse Oximetry 100 100 Oxygen Delivery Method Sepsis Recent Fever Within 48 Hours Sepsis New/Unexplained Change in Mental Status Sepsis Action Taken by Nursing 09/03/22 00:50 09/03/22 01:00 Temperature Temperature Source Pulse Rate 110 H 103 H Pulse Rate from SpO2 Sensor 117 H 105 H Respiratory Rate 20 21 Respiratory Effort / Characteristics Respiratory Depth Respiratory Pattern Blood Pressure 121/75 Blood Pressure [Right Arm] Blood Pressure Mean 90 Blood Pressure Mean [Right Arm] Pulse Oximetry 99 99 Oxygen Delivery Method Sepsis Recent Fever Within 48 Hours Sepsis New/Unexplained Change in Mental Status Sepsis Action Taken by Nursing Physical Exam GENERAL: She is oriented to person, place, and time. She appears well-developed and well-nourished. She does not appear distressed. HENT: Exam performed. -Head: Normocephalic and atraumatic. -Right Ear: External ear normal. No mastoid tenderness. -Left Ear: External ear normal. No mastoid tenderness. -Mouth/Throat: The oropharynx is clear and moist. No trismus in the jaw. No dental abscesses or uvula swelling. No oropharyngeal exudate or tonsillar abscesses. EYES: Conjunctivae and EOM are normal. Pupils are equal, round, and reactive to light. Right eye exhibits no discharge. Left eye exhibits no discharge. No scleral icterus. NECK: Normal range of motion. Neck supple. No JVD present. No spinous process tenderness present. No carotid bruit present. No rigidity. No tracheal deviation and normal range of motion present. No Brudzinski's sign and no Kernig's sign no georgette. CV: Tachycardic rate, regular rhythm, normal heart sounds and intact distal pulses. There is no peripheral edema. Palpable radial pulses bue. PULM/CHEST: Effort normal and breath sounds normal. No respiratory distress. No stridor. She has no wheezes. She has no rales. -Chest Wall: She exhibits no tenderness. ABD: The abdomen is soft. Bowel sounds are normal. She has no distension. No mas s is present. There is no tenderness. There is no rebound, no guarding, no Arriaga's sign and no tenderness at McBurney's point. Rovsig negative. No CVA tenderness bilaterally. MUSC/SKEL: Normal range of motion. There is no peripheral edema, tenderness or deformity. LYMPH: No cervical adenopathy. NEURO: She is alert and oriented to person, place, and time. She has normal strength. No cranial nerve deficit or sensory deficit. Coordination and gait normal. GCS eye subscore is 4. GCS verbal subscore is 5. GCS motor subscore is 6. Cerebellar tests wnl. SKIN: Skin is warm and dry. She is not diaphoretic. PSYCH: She has a normal mood and affect. Behavior is normal. Judgment and thought content normal. Course Course 2021: The patient was evaluated in room C2. A complete history and physical exam was performed Cardiac monitoring: An order was placed for continuous cardiac monitoring. The monitor shows a rate of 140 with sinus tachycardia rhythm interpreted by [place] Sepsis protocols were initiated. External medical records reviewed. Patient was admitted to this facility from August 20 to August 22, 2022. Patient was placed on Rocephin and the patient was transferred to [facility] for possible IR drainage of a possible renal abscess. Urine and blood cultures were all negative from this admission. Patient again states that she did not have any interventional radiology or surgical procedure performed she did have a ureteral stent placed by urology at [facility] and she was told by urology at [facility] that she does not have a renal abscess but instead has a renal cyst that does not need any intervention. Patient has been taking cefuroxime prescribed to her by the doctors at [facility]. Sepsis protocols were initiated. 2 L IV fluids were given. Given that the patient has been taking cefuroxime and is still febrile will give cefepime 2 g IV. 0006: Vital signs improved. Labs show a normal lactic acid, negative procalcitonin, minimal leukocytosis of 12.4. Urinalysis is negative for bacteria and is contaminated sample with greater than 30 epithelial cells. COVID and influenza negative. Chest x-ray negative. Pelvic OB ultrasound shows live IUP at 8 weeks 5 days with a heart rate of 181. Renal ultrasound shows a 1.2 cm left lower pole stone and left upper pole renal cyst measuring 1.3 x 1.1 cm with no hydronephrosis. Discussed case with on-call urology Dr. Murphy. Dr. Murphy states that there is no emergent urological intervention needed and no need for emergent transfer from a urological standpoint. He states his team can follow the patient and follow cultures on the patient. Discussed case with [facility] hospitalist Dr. Whalen who will evaluate the patient for admission. Administered Medications Sodium Chloride (Nss 1000ml) 1,000 mls @ 125 mls/hr IV .Q8H JEWELL Stop: 10/02/22 23:44 Last Admin: 09/03/22 01:08 Dose: 125 mls/hr Documented By: FREDY Discontinued Medications Sodium Chloride (Nss 1000ml) 1,000 mls @ 999 mls/hr IV .Q1H1M JEWELL Stop: 09/02/22 22:30 Last Infusion: 09/03/22 01:12 Dose: 0 mls/hr Documented By: Admin: 09/02/22 23:27 Dose: 999 mls/hr Documented By: Infusion: 09/02/22 22:08 Dose: 999 mls/hr Documented By: Admin: 09/02/22 21:07 Dose: 999 mls/hr Documented By: VAIBHAV Acetaminophen (Ofirmev) 1,000 mg in 100 mls @ 400 mls/hr IV NOW STA Stop: 09/02/22 20:38 Last Infusion: 09/02/22 22:40 Dose: 0 mls/hr Documented By: Admin: 09/02/22 21:11 Dose: 400 mls/hr Documented By: VAIBHAV Cefepime HCl (Maxipime) 2,000 mg in 20 mls @ 5 mls/min IV NOW STA; Protocol Stop: 09/02/22 20:41 Last Admin: 09/02/22 21:07 Dose: 5 mls/min Documented By: VAIBHAV Medical Decision Making Medical Records Attestation: I reviewed the patient's medical records. External medical records reviewed. Patient was admitted to this facility from August 20 to August 22, 2022. Patient was placed on Rocephin and the patient was transferred to [facility] for possible IR drainage of a possible renal abscess. Urine and blood cultures were all negative from this admission. Laboratory Data Attestation: I reviewed the patient's lab results. 09/02/22 20:58 09/02/22 21:47 Lab Results 09/02/22 09/02/22 09/02/22 Range/Units 20:58 20:58 20:58 WBC 12.44 H (4.8-10.8) K/ul RBC 3.90 L (4.20-5.40) M/uL Hgb 10.4 L (12.0-16.0) g/dl Hct 30.6 L (37.0-47.0) % MCV 78.5 L (80.0-100.0) fL MCH 26.7 (25.0-34.0) pg MCHC 34.0 (32.0-36.0) g/dL RDW Std Deviation 42.2 (36.4-46.3) fL RDW Coeff of Raj 15.0 H (11.5-14.5) % Plt Count 365 (130-400) K/uL MPV 10.2 (9.4-12.4) fL Immature Gran % (Auto) 0.6 % Neut % (Auto) 87.0 % Lymph % (Auto) 5.5 % [place] % (Auto) 5.5 % Eos % (Auto) 0.9 % Baso % (Auto) 0.5 % Neut # (Auto) 10.83 H (1.40-6.50) K/uL Lymph # (Auto) 0.68 L (1.2-3.4) K/uL [place] # (Auto) 0.68 H (0.11-0.59) K/uL Eos # (Auto) 0.11 (0-0.50) K/uL Baso # (Auto) 0.06 (0-0.2) K/uL Immature Gran # (Auto) 0.08 (0.01-0.20) K/uL Sodium Cancelled Potassium Cancelled Chloride Cancelled Carbon Dioxide Cancelled Anion Gap Cancelled BUN Cancelled Creatinine Cancelled Est Cr Clr Drug Dosing Cancelled Est GFR ( Amer) Cancelled Est GFR (Non-Af Amer) Cancelled BUN/Creatinine Ratio Cancelled Glucose Cancelled Lactate 1.5 (0.4-2.0) mmol/L Calcium Cancelled Magnesium Cancelled Total Bilirubin Cancelled Direct Bilirubin Cancelled AST Cancelled ALT Cancelled Alkaline Phosphatase Cancelled Troponin I High Sens 4.8 (0-14) pg/ml Total Protein Cancelled Albumin Cancelled Procalcitonin HCG, Quant mIU/ml Urine Color Urine Appearance (Clear) Urine pH (4.5-7.5) Ur Specific [place] (1.000-1.030) Urine Protein (Negative) Urine Glucose (UA) (Negative) Urine Ketones (Negative) Urine Blood (Negative) Urine Nitrite (Negative) Urine Bilirubin (Negative) Urine Urobilinogen (Negative) Ur Leukocyte Esterase (Negative) Urine WBC (Auto) (0-5) /hpf Urine RBC (Auto) (0-4) /hpf U Hyaline Cast (Auto) (0-5) /lpf U Epithel Cells (Auto) (0-5) /lpf Urine Bacteria (Auto) (Negative) SARS-CoV-2 (PCR) (Negative) Influenza Type A (PCR) (Neg) Influenza Type B (PCR) (Neg) RSV (RT-PCR) (Neg) 09/02/22 09/02/22 09/02/22 Range/Units 20:58 20:58 21:09 WBC (4.8-10.8) K/ul RBC (4.20-5.40) M/uL Hgb (12.0-16.0) g/dl Hct (37.0-47.0) % MCV (80.0-100.0) fL MCH (25.0-34.0) pg MCHC (32.0-36.0) g/dL RDW Std Deviation (36.4-46.3) fL RDW Coeff of Raj (11.5-14.5) % Plt Count (130-400) K/uL MPV (9.4-12.4) fL Immature Gran % (Auto) % Neut % (Auto) % Lymph % (Auto) % [place] % (Auto) % Eos % (Auto) % Baso % (Auto) % Neut # (Auto) (1.40-6.50) K/uL Lymph # (Auto) (1.2-3.4) K/uL [place] # (Auto) (0.11-0.59) K/uL Eos # (Auto) (0-0.50) K/uL Baso # (Auto) (0-0.2) K/uL Immature Gran # (Auto) (0.01-0.20) K/uL Sodium Potassium Chloride Carbon Dioxide Anion Gap BUN Creatinine Est Cr Clr Drug Dosing Est GFR ( Amer) Est GFR (Non-Af Amer) BUN/Creatinine Ratio Glucose Lactate (0.4-2.0) mmol/L Calcium Magnesium Total Bilirubin Direct Bilirubin AST ALT Alkaline Phosphatase Troponin I High Sens (0-14) pg/ml Total Protein Albumin Procalcitonin Cancelled HCG, Quant 30419 mIU/ml Urine Color Urine Appearance (Clear) Urine pH (4.5-7.5) Ur Specific [place] (1.000-1.030) Urine Protein (Negative) Urine Glucose (UA) (Negative) Urine Ketones (Negative) Urine Blood (Negative) Urine Nitrite (Negative) Urine Bilirubin (Negative) Urine Urobilinogen (Negative) Ur Leukocyte Esterase (Negative) Urine WBC (Auto) (0-5) /hpf Urine RBC (Auto) (0-4) /hpf U Hyaline Cast (Auto) (0-5) /lpf U Epithel Cells (Auto) (0-5) /lpf Urine Bacteria (Auto) (Negative) SARS-CoV-2 (PCR) NEGATIVE (Negative) Influenza Type A (PCR) Negative (Neg) Influenza Type B (PCR) Negative (Neg) RSV (RT-PCR) Negative (Neg) 09/02/22 09/02/22 09/02/22 Range/Units 21:09 21:44 21:47 WBC (4.8-10.8) K/ul RBC (4.20-5.40) M/uL Hgb (12.0-16.0) g/dl Hct (37.0-47.0) % MCV (80.0-100.0) fL MCH (25.0-34.0) pg MCHC (32.0-36.0) g/dL RDW Std Deviation (36.4-46.3) fL RDW Coeff of Raj (11.5-14.5) % Plt Count (130-400) K/uL MPV (9.4-12.4) fL Immature Gran % (Auto) % Neut % (Auto) % Lymph % (Auto) % [place] % (Auto) % Eos % (Auto) % Baso % (Auto) % Neut # (Auto) (1.40-6.50) K/uL Lymph # (Auto) (1.2-3.4) K/uL [place] # (Auto) (0.11-0.59) K/uL Eos # (Auto) (0-0.50) K/uL Baso # (Auto) (0-0.2) K/uL Immature Gran # (Auto) (0.01-0.20) K/uL Sodium 132 L Potassium 3.5 Chloride 104 Carbon Dioxide 20 L Anion Gap 8 BUN 5 L Creatinine 0.45 L Est Cr Clr Drug Dosing 209.7 Est GFR ( Amer) > 150.0 Est GFR (Non-Af Amer) 144.2 BUN/Creatinine Ratio 11.1 Glucose 90 Lactate (0.4-2.0) mmol/L Calcium 9.2 Magnesium 1.7 Total Bilirubin 0.4 Direct Bilirubin 0.1 AST 13 ALT 18 Alkaline Phosphatase 84 Troponin I High Sens (0-14) pg/ml Total Protein 7.5 Albumin 3.9 Procalcitonin < 0.05 HCG, Quant mIU/ml Urine Color Yellow Urine Appearance Clear (Clear) Urine pH 7.0 (4.5-7.5) Ur Specific [place] 1.008 (1.000-1.030) Urine Protein 2+ H (Negative) Urine Glucose (UA) Negative (Negative) Urine Ketones Negative (Negative) Urine Blood 2+ H (Negative) Urine Nitrite Negative (Negative) Urine Bilirubin Negative (Negative) Urine Urobilinogen Negative (Negative) Ur Leukocyte Esterase 1+ H (Negative) Urine WBC (Auto) 10-30 H (0-5) /hpf Urine RBC (Auto) >30 H (0-4) /hpf U Hyaline Cast (Auto) 1-5 (0-5) /lpf U Epithel Cells (Auto) >30 H (0-5) /lpf Urine Bacteria (Auto) Negative (Negative) SARS-CoV-2 (PCR) (Negative) Influenza Type A (PCR) (Neg) Influenza Type B (PCR) (Neg) RSV (RT-PCR) (Neg) Imaging Data Attestation: I personally reviewed and interpreted this imaging study as follows: My Impression: Chest x-ray negative. Airway clear. No pneumothorax. No consolidation. No cardiomegaly or cephalization.. No free air under the diaphragm. No fractures of the skeletal structures. Radiologist's Impression: PreliminaryFindingsOnly See Final Report For Complete Findings US OB 1st TRIMESTER: Single, live intrauterine gestation with an estimated gestational age of 8weeks 5 days 5 days. Estimated deliverydate [birth year]/09/[birth year]23. heart rate: 181 bpm. Nonvisualized right ovary. Normal blood flowin the left ovary. No adnexal mass or free fluid. Radiologist: Philip Kruger MD Study ready at 23:13 and initial results transmitted at 23:28 PreliminaryFindingsOnly See Final Report For Complete Findings US RENAL: Right kidney:No hydronephrosis or nephrolithiasis. Left kidney:No hydronephrosis. 1.2 cmleft lower pole stone. Left upper pole renal cyst measures 1.3 x 1.1 cm. Urinarybladder:Bilateral ureteral jets are identified. IMPRESSION: 1.2 cmleft lower pole stone. No hydronephrosis. Radiologist: Philip Kruger MD Study ready at 23:13 and initial results transmitted at 23:33 MDM Narrative 2021: The patient was evaluated in room C2. A complete history and physical exam was performed Cardiac monitoring: An order was placed for continuous cardiac monitoring. The monitor shows a rate of 140 with sinus tachycardia rhythm interpreted by [place] Sepsis protocols were initiated. External medical records reviewed. Patient was admitted to this facility from August 20 to August 22, 2022. Patient was placed on Rocephin and the patient was transferred to [facility] for possible IR drainage of a possible renal abscess. Urine and blood cultures were all negative from this admission. Patient again states that she did not have any interventional radiology or surgical procedure performed she did have a ureteral stent placed by urology at [facility] and she was told by urology at [facility] that she does not have a renal abscess but instead has a renal cyst that does not need any intervention. Patient has been taking cefuroxime prescribed to her by the doctors at [facility]. Sepsis protocols were initiated. 2 L IV fluids were given. Given that the p atient has been taking cefuroxime and is still febrile will give cefepime 2 g IV. 0006: Vital signs improved. Labs show a normal lactic acid, negative procalcitonin, minimal leukocytosis of 12.4. Urinalysis is negative for bacteria and is contaminated sample with greater than 30 epithelial cells. COVID and influenza negative. Chest x-ray negative. Pelvic OB ultrasound shows live IUP at 8 weeks 5 days with a heart rate of 181. Renal ultrasound shows a 1.2 cm left lower pole stone and left upper pole renal cyst measuring 1.3 x 1.1 cm with no hydronephrosis. Discussed case with on-call urology Dr. Murphy. Dr. Murphy states that there is no emergent urological intervention needed and no need for emergent transfer from a urological standpoint. He states his team can follow the patient and follow cultures on the patient. Discussed case with [facility] hospitalist Dr. Whalen who will evaluate the patient for admission. Impression & Plan Sepsis, Currently Discharge Plan Visit Data Chief Complaint: Fever Stated Complaint: FEVER,CHILLS,SOB,HX OF KIDNEY INFECTION ED Provider: Billy Rojas Discharge Problem: Sepsis, Currently Patient Disposition: Being Evaluated by Hospitalist Forms Stand Alone Forms: My [facility] Prescriptions Prescriptions: No Action cefuroxime axetil 500 mg tablet 500 mg PO BID Rx Instructions: STARTED 08/26/22 FOR 14 DAYS. Women's One Daily 18 mg iron-400 mcg-500 mg Ca Tablet 1 tab PO DAILY Referrals Referrals: PCP,NO [Primary Care Provider] -
[2022-09-03] MEDS ORDERED: POLYETHYLENE (MIRALAX) 17 GM PACK PO PRN (02:11)
[2022-09-03] MEDS: ACETAMINOPHEN 325 MG TAB PO PRN ×2 (02:41→07:58)
--- NOTE | 2022-09-03 02:44 | Consultation ---
Date of Consultation September 03, 2022 Assessment & Plan (1) : (2) Fever: Plan Patient admitted for complicated UTI, ? sepsis. stent. She has a viable iup measuring 8 5/7 weeks for EDC of 04/09/23. Urology is consulted and best to manage this patient given her situation. Await blood cultures and urine cultures for appropriate treatment per urology. Cefipime is safe in as are all cephalosporin antibiotics. Appropriate antibiotic choice based on culture results in the setting of what is safe in . Would continue with tylenol for pain and avoid nsaids. ok for zofran or phenergan for nausea. During the , if she elects to continue, she will likely require Q monthly urine cultures for evaluation. Urology may recommend antibiotic suppression and will comply with those recommendations. She will need to set up new ob visits with our office or the office of her choice as needed. She is ,however , considering termination. She should contact [facility] for information regarding obtaining these services talha as she is already 8 weeks and may soon be past/or possibly already past timing for medical termination. She was given my name and office number should she require our services. Doppler confirms viable . Unless something changes in her clinical status regarding (bleeding, cramping, etc), will sign off and leave primary management to medicine/urology. Thank you for this consult and please contact us if we can be of further help in the care of this very pleasant young lady. 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 Hx significant for presentation to ED on 08/20. Evaluation for fever/chills/back pain and UTI sx for 5-6 days. Evaluated with elevated WBC, fever, urine concerning for infection. Renal ultrasound showed a 3.4cm lesion of the left upper kidney suspicious for abscess and a probable renal stone in the left collecting system. She was given Rocephin, discussed with urology and because of the abscess was transferred to [facility] for evaluation for the need for IR for treatment. Patient was told there that no abscess only cyst but did have a left renal stent placed. Was sent home on Cefuroxine about a week ago. Blood cultures and urine cultures were negative. Represents today about 1 week after being d/c from [place] with fever, chills, nausea and sob. Renal ultrasound shows (per ED report) a 1.2cm left upper pole cyst measuring 1.3cm and left ureteral stent. Pelvic ultrasound (pictures reviewed by me) shows a viable IUP, HR 181, measuring 8 5/7 weeks for EDC of 04/09/23. Normal appearing adnexa. WBC today mildly elevated 12.4, slightly anemic with hgb 10.4 but consistent with prior, circle beveler normal. Initial pulse on admission was 156, now 90-100s, initial blood pressure 144/93, now 120s/60s, Tmas 38.2, now 37.2. Urine continues to be consistent with UTI, although blood could be from stent. Currently on IV cefipime and tylenol for pain. I am consulted for routine ob consult. Patient notes this is an unplanned . Was not on any hormonal control. She is considering termination. 8 5/7 by ultrasound today and dating would likely be based on this US--formal report pending . Has not established any care locally. She notes she is having cramping, but unsure if this is related to bladder or uterus. She notes no bleeding. Discovered when she went to urgent care center prior to her first ED visit, so very new diagnosis. Allergies Allergy/AdvReac Type Severity Reaction Status Date / Time No Known Allergies Allergy Verified 09/02/22 21:35 Home Medications Medication Instructions Recorded Confirmed Type cefuroxime axetil 500 mg tablet 500 mg PO BID 09/02/22 09/02/22 History multivit-iron 18 mg-folic acid 400 1 tab PO DAILY 09/02/22 09/02/22 History mcg-calcium 500 mg-minerals tablet (Women's One Daily) Patient History Medical History Currently 5 weeks as of 08/20/2022 UTI (urinary tract infection) Surgical History No significant past surgical history Social History Smoking Status: Never smoker Hx Alcohol Use: No Hx Substance Use: No Preferred Language: Grenadian Communication Ability: Effective Audio Visual Project Manager Required: No Beliefs That Will Affect Care: None Current Living Situation: Other Current Living Situation Comment: APARTMENT WITH ROOMMATES Feels Safe at Home: Yes Safety Concerns: Feels Safe At This Time Assistive Devices: None Physical Exam Constitutional: WD/WN, vitals as above (resting when I entered the room) Cardiovascular: Extremities: no calf tenderness and no edema Gastrointestinal (Abdomen): soft, nt, nd, no masses noted, uterus not palpable no appreciable cvat. Results & Data ([facility]) Vital Signs (Past 12 Hours) Vital Signs Temp Pulse Pulse Resp BP BP Pulse Ox 09/03/22 02:00 37.2 C 115 H 18 128/76 99 09/03/22 01:31 103 H 09/03/22 01:46 09/03/22 01:30 37.3 C 09/03/22 01:00 103 H 21 121/75 99 09/03/22 00:50 110 H 20 99 09/03/22 00:45 116/74 09/03/22 00:40 110 H 22 100 09/03/22 00:32 102 H 21 130/74 100 09/03/22 00:20 93 H 19 100 09/03/22 00:15 92 H 20 100 09/03/22 00:10 94 H 20 109/64 100 09/03/22 00:04 99 H 19 119/65 100 09/03/22 00:00 92 H 19 100 09/02/22 23:50 97 H 22 99 09/02/22 23:40 94 H 21 99 09/02/22 23:30 95 H 21 98 09/02/22 23:29 20 112/64 98 09/02/22 23:00 98 09/02/22 21:25 134 H 09/02/22 20:15 38.2 C H 156 H 16 144/93 H 98 O2 Del Method 09/03/22 02:00 Room Air 09/03/22 01:31 09/03/22 01:46 Room Air 09/03/22 01:30 09/03/22 01:00 09/03/22 00:50 09/03/22 00:45 09/03/22 00:40 09/03/22 00:32 09/03/22 00:20 09/03/22 00:15 09/03/22 00:10 09/03/22 00:04 09/03/22 00:00 09/02/22 23:50 09/02/22 23:40 09/02/22 23:30 09/02/22 23:29 Room Air 09/02/22 23:00 Room Air 09/02/22 21:25 09/02/22 20:15 Room Air PG Care Time/CCT Total # of Minutes Spent Total Time Spent with Patient: Total time spent is greater than 50% in coordination of care (as documented) at patient's floor/unit and/or counseling patient: Coding Level of Care Code INP/OBS CONSULT LVL 2, 35 MIN Diagnoses Z3A.01 Weeks of gestation: less than 8 weeks Fever R50.81 Fever type: due to other condition (1) Weeks of gestation: less than 8 weeks Qualified Code(s): Z3A.01 - Less than 8 weeks gestation of (2) Fever Fever type: due to other condition Qualified Code(s): R50.81 - Fever presenting with conditions classified elsewhere
--- NOTE | 2022-09-03 06:38 | Ultrasound Report ---
RENAL ULTRASOUND CLINICAL HISTORY: Left flank pain. . Recent stent placement. COMPARISON STUDY: Renal ultrasound August 21, 2022. TECHNIQUE: Sonography of the kidneys and the urinary bladder was performed. Please note that the OB ultrasound reported separately. FINDINGS: The right kidney measures 11.8 x 4.8 x 4.3 cm and the left measures 13.3 x 5.7 x 5 cm. Ther e is no hydronephrosis. 1.2 cm calculus within the lower pole of the left kidney is noted. The comple x cystic lesion within the upper pole of the left kidney on ultrasound August 21, 2022 has significa ntly decreased in size since ultrasound of August 21, 2022. This may have reflected an abscess. This now measures 1.3 cm and is relatively simple appearing. No new renal fluid collections are present. Distal aspect of the left ureteral stent is noted within the bladder. IMPRESSION: 1. Left ureteral stent in place. No hydronephrosis. 2. Significant decrease in size of the previously described complex cystic lesion/abscess within the upper pole of the left kidney on ultrasound of August 21, 2022. This now measures 1.2 cm. 3. Left-sided nephrolithiasis. ACT 112: Negative or not required by law. Electronically signed by: Dimitri Evans M.D. 09/03/2022 6:36 AM
--- NOTE | 2022-09-03 07:05 | XRay Report ---
SINGLE VIEW CHEST CLINICAL HISTORY: Sepsis. FINDINGS: An AP, portable, upright chest radiograph is obtained. No prior studies are available for c omparison at the time of dictation. The patient was shielded due to . The cardiomediastinal silhouette is unremarkable. The lungs and pleural spaces are clear. No pneumothorax is seen. The bony thorax is grossly intact. IMPRESSION: No active disease in the chest. ACT 112: Negative or not required by law. Electronically signed by: Hermes Lott M.D. 09/03/2022 7:04 AM
--- NOTE | 2022-09-03 07:57 | Ultrasound Report ---
ULTRASOUND OF THE GRAVID UTERUS AND PELVIS CLINICAL HISTORY: . Left flank pain. COMPARISON STUDY: No prior TECHNIQUE: Real-time, grayscale, and color flow sonography of the gravid uterus and pelvis is perform ed transabdominally. Images are reviewed in the transverse and longitudinal planes. FINDINGS: Uterus: The gravid uterus is normal in size and heterogeneous and echotexture. Gestation: There is a single live intrauterine gestation with a heart rate of 181 bpm. The crown-rum p length measures 2.0 cm, corresponding to an estimated age of 8 weeks 5 days. The mean gestational s ac diameter measures 3.48 cm, corresponding to an estimated age of 8 weeks 4 days. A yolk sac is iden tified. Ovaries: The right ovary was not visualized due to overlying bowel. The left ovary is normal in appea magdy, measuring 2.8 x 0.9 x 1.5 cm. Normal Doppler waveforms are shown within the left ovary. Pelvis: There is no free fluid in the cul-de-sac. No concerning adnexal lesion is seen. IMPRESSION: 1. There is a single live intrauterine gestation with an estimated age of 8 weeks 5 days by crown-rum p measurement. 2. No adnexal abnormality is seen. ACT 112: Negative or not required by law. Electronically signed by: Hermes Lott M.D. 09/03/2022 7:54 AM
--- NOTE | 2022-09-03 07:57 | Urology Consultation ---
Date of Consultation September 03, 2022 Assessment & Plan (1) Kidney abscess: 22-year-old female who is currently 8 weeks admitted for suspected UTI, sepsis. Patient currently afebrile, hemodynamically stable. Lab work reviewedcreatinine 0.49, WBC improved to 7.69, hemoglobin 9.7. Urine culture prelim showing no growth, blood cultures pending. She was on antibiotics prior to arrival, so urine culture may not show growth. SUREKHA shows decrease in size of complex appearing cyst. Left ureteral stent in position. Left nephrolithiasis. No hydronephrosis. Complex cyst seems to be improving on antibiotics, again suggesting possible abscess/source of infection. Current size does not require drainage at this time. No acute intervention indicated. She will need to follow-up with [place] regarding left ureteral stent. In the setting of will need to be exchanged at least every 6 weeks. Continue IV antibiotics and supportive care. will follow peripherally. See attending physician note for further details on plan of care. Supervising Physician Co-Signing Physician Notes Discussed patient with ARPITA. Agree with plan. Suspect patient had abscess as it has shrunk from 3cm to 1cm on antibiotics. Now likely too small to be drained percutaneously. Continue antibiotics. Once discharged, needs to f/u with [place] for management of stent as it was placed at their hospital. History of Present Illness Attending Physician: Carl Jeong History of Present Illness 22 year old female with at 8 weeks gestation who presented to the emergency department on 09/03/2022 with fever, flank pain, ill feelings. She was recently hospitalized at [facility] from 08/20-08/22 due to UTI and concern for left renal abscess based on renal ultrasound. She was transferred to [place] for consideration of IR drainage. She was treated with antibiotics and a left ureteral stent was placed in [place]. She was discharged from [place] approximately 1 week ago with p.o. cefuroxime. Blood cultures from [facility] on 08/20/22 showed no growth. Urine culture showed moderate counts of m ixed probable lnea. On arrival to ED, she was febrile at 38.2 and tachycardic. Lab work independently reviewed. CBC showed mild leukocytosis of 12.44, hemoglobin 10.4. Chemistry showed a creatinine of 0.45, sodium 132. Lactate 1.5. Urinalysis showed 2+ protein, 2+ blood, 1+ LE, 10-30 WBC, >30 RBC, >30 epithelials, negative bacteria. She was treated with IV fluids, acetaminophen, and cefepime in ED. She was admitted to the hospital medicine service. Renal US 09/02/22 showed a left ureteral stent in place. No hydronephrosis. Significant decrease in size of the previously described complex cystic lesion/abscess within the upper pole of the left kidney on ultrasound of August 21, 2022. This now measures 1.3 cm. A 1.2 cm calculus within the lower pole of the left kidney is noted. Chart review: Afebrile Labs today -creatinine 0.49, WBC 7.69, hemoglobin 9.7 Urine cultureprelim showing no growth Blood cultures pending On IV cefepime Patient seen and examined at bedside this morning. She is awake, alert and ambulating from the bathroom. She reports some bladder and left flank discomfort. Voiding spontaneously. Some dysuria, no hematuria. She has had nausea intermittently. No fever or chills at present. Allergies Allergy/AdvReac Type Severity Reaction Status Date / Time No Known Allergies Allergy Verified 09/02/22 21:35 Home Medications Medication Instructions Recorded Confirmed Type cefuroxime axetil 500 mg tablet 500 mg PO BID 09/02/22 09/02/22 History multivit-iron 18 mg-folic acid 400 1 tab PO DAILY 09/02/22 09/02/22 History mcg-calcium 500 mg-minerals tablet (Women's One Daily) Patient History Medical History (Updated 09/03/22 @ 17:49 by Carl Jeong) Currently 5 weeks as of 08/20/2022 UTI (urinary tract infection) Surgical History No significant past surgical history Social History Smoking Status: Never smoker Hx Alcohol Use: No Hx Substance Use: No Preferred Language: Sierra Leonean Communication Ability: Effective Rehabilitation Teacher Required: No Beliefs That Will Affect Care: None Current Living Situation: Other Current Living Situation Comment: APARTMENT WITH ROOMMATES Feels Safe at Home: Yes Safety Concerns: Feels Safe At This Time Assistive Devices: None Review of Systems Review of Systems: All systems reviewed & are unremarkable except as noted in HPI & below Physical Exam Constitutional: well developed and well nourished; no acute distress Eyes: no scleral abnormality Respiratory: normal respiratory effort; no respiratory distress and no labored breathing Cardiovascular: Extremities: no pedal edema Gastrointestinal (Abdomen): Inspection/Auscultation: abdomen normal to inspec tion; abdomen not distended Percussion/Palpation: abdomen soft; abdomen nontender Musculoskeletal: Head/Neck/Chest: normocephalic and head atraumatic Neurologic: moves all extremities and awake Psychiatric: Orientation: alert and oriented x 3 Genitourinary: mild tenderness over left flank Results & Data ([facility]) Vital Signs (Past 12 Hours) Vital Signs Temp Pulse Pulse Resp BP BP Pulse Ox 09/03/22 07:41 37.0 C 79 16 116/73 100 09/03/22 03:12 110 H 99 09/03/22 02:00 37.2 C 115 H 18 128/76 99 09/03/22 01:31 103 H 09/03/22 01:46 09/03/22 01:30 37.3 C 09/03/22 01:00 103 H 21 121/75 99 09/03/22 00:50 110 H 20 99 09/03/22 00:45 116/74 09/03/22 00:40 110 H 22 100 09/03/22 00:32 102 H 21 130/74 100 09/03/22 00:20 93 H 19 100 09/03/22 00:15 92 H 20 100 09/03/22 00:10 94 H 20 109/64 100 09/03/22 00:04 99 H 19 119/65 100 09/03/22 00:00 92 H 19 100 09/02/22 23:50 97 H 22 99 09/02/22 23:40 94 H 21 99 09/02/22 23:30 95 H 21 98 09/02/22 23:29 20 112/64 98 09/02/22 23:00 98 09/02/22 21:25 134 H 09/02/22 20:15 38.2 C H 156 H 16 144/93 H 98 O2 Del Method 09/03/22 07:41 Room Air 09/03/22 03:12 Room Air 09/03/22 02:00 Room Air 09/03/22 01:31 09/03/22 01:46 Room Air 09/03/22 01:30 09/03/22 01:00 09/03/22 00:50 09/03/22 00:45 09/03/22 00:40 09/03/22 00:32 09/03/22 00:20 09/03/22 00:15 09/03/22 00:10 09/03/22 00:04 09/03/22 00:00 09/02/22 23:50 09/02/22 23:40 09/02/22 23:30 09/02/22 23:29 Room Air 09/02/22 23:00 Room Air 09/02/22 21:25 09/02/22 20:15 Room Air PG Care Time/CCT Total # of Minutes Spent Total Time Spent with Patient: Total time spent is greater than 50% in coordination of care (as documented) at patient's floor/unit and/or counseling patient: Coding Level of Care Code INP/OBS CONSULT LVL 3, 45 MIN Diagnoses Kidney abscess N15.1
[2022-09-03] MEDS: CEFEPIME 1,000 MG in SYRINGE 0 ML IV SCH ×2 (07:59→20:38)
[2022-09-03] MEDS: CEROVITE ADV FORMULA TAB PO SCH (08:00)
[2022-09-03 08:56] LABS: Basophils # (auto) 0.05 K/uL (0-0.2); Basophils % (auto) 0.7 %; Eosinophils # (auto) 0.06 K/uL (0-0.50); Eosinophils % (auto) 0.8 %; Hematocrit (blood only) 29.8 % (37.0-47.0); Hemoglobin 9.7 g/dl (12.0-16.0); Immature Granulocytes # (auto) 0.12 K/uL (0.01-0.20); Immature Granulocytes % (auto) 1.6 %; Lymphocytes # (auto) 1.11 K/uL (1.2-3.4); Lymphocytes % (auto) 14.4 %; Mean Corpuscular Hemoglobin 26.4 pg (25.0-34.0); Mean Corpuscular Hgb Conc 32.6 g/dL (32.0-36.0); Mean Corpuscular Volume 81.2 fL (80.0-100.0); Mean Platelet Volume 9.5 fL (9.4-12.4); Monocytes # (auto) 0.75 K/uL (0.11-0.59); Monocytes % (auto) 9.8 %; Neutrophils % (auto) 72.7 %; Platelet Count 300 K/uL (130-400); Red Blood Count 3.67 M/uL (4.20-5.40); White Blood Count 7.69 K/ul (4.8-10.8)
[2022-09-03 09:11] LABS: Anion Gap 6 (3-11); BUN Creatinine Ratio 6.1 (10-20); Blood Urea Nitrogen 3 mg/dl (6-23); Calcium 9.1 mg/dl (8.5-10.1); Carbon Dioxide 23 mmol/L (21-32); Chloride 106 mmol/L (98-107); Creatinine Clr Calc Pharmacy 200.6 ml/min; Est GFR (African American) > 150.0 ml/min; Est GFR (Non-African American) 140.3 ml/min; Glucose 92 mg/dl (70-99(Fasting)); Iron 15 mcg/dl (35-150); Magnesium 1.9 mg/dl (1.7-2.4); Potassium 3.3 mmol/L (3.5-5.1); Sodium 135 mmol/L (136-145); Total Iron Binding Cap Calc 371 mcg/dl (250-450); Transferrin (FE) Percent Satur 4 % (15-50); Unsaturated Iron Binding Cap 356 mcg/dl (155-355)
--- NOTE | 2022-09-03 10:02 | Electrocardiogram Report ---
Test Reason : Blood Pressure : / mmHG Vent. Rate : 128 BPM Atrial Rate : 128 BPM P-R Int : 154 ms QRS Dur : 078 ms QT Int : 288 ms P-R-T Axes : 043 021 010 degrees QTc Int : 420 ms Sinus tachycardia Otherwise normal ECG No previous ECGs available Confirmed by Harpreet Montoya ([id number]) on 09/03/2022 10:01:47 AM Referred By: REFERRED SELF Confirmed By:René Montoya
[2022-09-03] MEDS: POTASSIUM CHLORIDE CRTAB 20 MEQ TABCR PO SCH ×3 (10:04→20:47)
--- NOTE | 2022-09-03 17:56 | Hospitalist Progress Note ---
Date of Service September 03, 2022 Assessment & Plan (1) Sepsis: Plan: 2nd to UTI. cont current IV antibiotics (cefepime). await blood/urine cx's. BPs wnl. creatinine stable. (2) UTI (urinary tract infection): Plan: complicated - due to presence of ureteral stent, suspected kidney abscess on left, and left-sided kidney stone - all in the setting of current . follow blood/urine cultures. cont cefepime. narrow abx when able. (3) Kidney abscess: Plan: suspected, left kidney. initially diagnosed early this month. was 3.4cm on 08/20/22 via ultrasound. now 1.3cm on 09/02/22. this would suggest good treatment response to antibiotics. no surgical intervention needed. (4) Kidney stone on left side: Plan: At least 1cm in size or larger. [facility] Stent is in good position based on current imaging. Will need to be exchanged every 6 weeks by urology. (5) : Plan: age estimate 8 5/7 weeks with EDC of 04/09/23. Appreciate OB consultation. At this time there are no active OB issues or concerns. Cont PNV. (6) Hypokalemia: Plan: replace. repeat BMP in am. (7) Iron deficiency anemia: Plan: will recommend Ferrous sulfate supplementation BID at discharge. (8) DVT prophylaxis: Plan: early ambulation Plan appreciate OB & Urology assistance Admission and Anticipated Discharge Date Admission Date: September 03, 2022 Subjective patient feeling quite tired appetite fair mild headache overall just feels washed out no fevers today no abd pain or vomiting denies back pain we discussed her Fe deficiency and plan of care Review of Systems Review of Systems: gen - no fevers or chills cv - no chest pain pulm - no cough or congestion GI - no nausea Physical Exam Physical Exam: gen - NAD, looks sick but nontoxic mouth - MMM neck - no JVD heart - 2/6 AMBER LSB, RRR, s1 s2 lungs - CTA b/l abd - soft NT ND BS+; no flank pain to palpation ext - no edema, pulses 2+ b/l Results & Data Results & Data ([facility]) Vital Signs (Past 12 Hours) Vital Signs Temp Pulse Resp BP Pulse Ox O2 Del Method 09/03/22 15:30 36.7 C 93 H 16 114/75 100 Room Air 09/03/22 08:00 Room Air 09/03/22 07:41 37.0 C 79 16 116/73 100 Room Air Laboratory Results Laboratory Results - last 24 hr 09/02/22 09/02/22 09/02/22 20:58 20:58 20:58 WBC 12.44 H RBC 3.90 L Hgb 10.4 L Hct 30.6 L MCV 78.5 L MCH 26.7 MCHC 34.0 RDW Std Deviation 42.2 RDW Coeff of Raj 15.0 H Plt Count 365 MPV 10.2 Immature Gran % (Auto) 0.6 Neut % (Auto) 87.0 Lymph % (Auto) 5.5 Glascock % (Auto) 5.5 Eos % (Auto) 0.9 Baso % (Auto) 0.5 Neut # (Auto) 10.83 H Lymph # (Auto) 0.68 L [place]ock # (Auto) 0.68 H Eos # (Auto) 0.11 Baso # (Auto) 0.06 Immature Gran # (Auto) 0.08 Sodium Cancelled Potassium Cancelled Chloride Cancelled Carbon Dioxide Cancelled Anion Gap Cancelled BUN Cancelled Creatinine Cancelled Est Cr Clr Drug Dosing Cancelled Est GFR ( Amer) Cancelled Est GFR (Non-Af Amer) Cancelled BUN/Creatinine Ratio Cancelled Glucose Cancelled Lactate 1.5 Calcium Cancelled Magnesium Cancelled Iron TIBC Unsaturated IBC Transferrin % Sat Ferritin Total Bilirubin Cancelled Direct Bilirubin Cancelled AST Cancelled ALT Cancelled Alkaline Phosphatase Cancelled Troponin I High Sens 4.8 Total Protein Cancelled Albumin Cancelled Procalcitonin HCG, Quant Urine Color Urine Appearance Urine pH Ur Specific Hammond Urine Protein Urine Glucose (UA) Urine Ketones Urine Blood Urine Nitrite Urine Bilirubin Urine Urobilinogen Ur Leukocyte Esterase Urine WBC (Auto) Urine RBC (Auto) U Hyaline Cast (Auto) U Epithel Cells (Auto) Urine Bacteria (Auto) SARS-CoV-2 (PCR) Influenza Type A (PCR) Influenza Type B (PCR) RSV (RT-PCR) 09/02/22 09/02/22 09/02/22 20:58 20:58 21:09 WBC RBC Hgb Hct MCV MCH MCHC RDW Std Deviation RDW Coeff of Raj Plt Count MPV Immature Gran % (Auto) Neut % (Auto) Lymph % (Auto) Gl[place]ock % (Auto) Eos % (Auto) Baso % (Auto) Neut # (Auto) Lymph # (Auto) Gl[place]ock # (Auto) Eos # (Auto) Baso # (Auto) Immature Gran # (Auto) Sodium Potassium Chloride Carbon Dioxide Anion Gap BUN Creatinine Est Cr Clr Drug Dosing Est GFR ( Amer) Est GFR (Non-Af Amer) BUN/Creatinine Ratio Glucose Lactate Calcium Magnesium Iron TIBC Unsaturated IBC Transferrin % Sat Ferritin Total Bilirubin Direct Bilirubin AST ALT Alkaline Phosphatase Troponin I High Sens Total Protein Albumin Procalcitonin Cancelled HCG, Quant 30047 Urine Color Urine Appearance Urine pH Ur Specific Hammond Urine Protein Urine Glucose (UA) Urine Ketones Urine Blood Urine Nitrite Urine Bilirubin Urine Urobilinogen Ur Leukocyte Esterase Urine WBC (Auto) Urine RBC (Auto) U Hyaline Cast (Auto) U Epithel Cells (Auto) Urine Bacteria (Auto) SARS-CoV-2 (PCR) NEGATIVE Influenza Type A (PCR) Negative Influenza Type B (PCR) Negative RSV (RT-PCR) Negative 09/02/22 09/02/22 09/02/22 21:09 21:44 21:47 WBC RBC Hgb Hct MCV MCH MCHC RDW Std Deviation RDW Coeff of Raj Plt Count MPV Immature Gran % (Auto) Neut % (Auto) Lymph % (Auto) Glascock % (Auto) Eos % (Auto) Baso % (Auto) Neut # (Auto) Lymph # (Auto) Glascock # (Auto) Eos # (Auto) Baso # (Auto) Immature Gran # (Auto) Sodium 132 L Potassium 3.5 Chloride 104 Carbon Dioxide 20 L Anion Gap 8 BUN 5 L Creatinine 0.45 L Est Cr Clr Drug Dosing 209.7 Est GFR ( Amer) > 150.0 Est GFR (Non-Af Amer) 144.2 BUN/Creatinine Ratio 11.1 Glucose 90 Lactate Calcium 9.2 Magnesium 1.7 Iron TIBC Unsaturated IBC Transferrin % Sat Ferritin Total Bilirubin 0.4 Direct Bilirubin 0.1 AST 13 ALT 18 Alkaline Phosphatase 84 Troponin I High Sens Total Protein 7.5 Albumin 3.9 Procalcitonin < 0.05 HCG, Quant Urine Color Yellow Urine Appearance Clear Urine pH 7.0 Ur Specific Hammond 1.008 Urine Protein 2+ H Urine Glucose (UA) Negative Urine Ketones Negative Urine Blood 2+ H Urine Nitrite Negative Urine Bilirubin Negative Urine Urobilinogen Negative Ur Leukocyte Esterase 1+ H Urine WBC (Auto) 10-30 H Urine RBC (Auto) >30 H U Hyaline Cast (Auto) 1-5 U Epithel Cells (Auto) >30 H Urine Bacteria (Auto) Negative SARS-CoV-2 (PCR) Influenza Type A (PCR) Influenza Type B (PCR) RSV (RT-PCR) 09/03/22 09/03/22 08:29 08:29 WBC 7.69 RBC 3.67 L Hgb 9.7 L Hct 29.8 L MCV 81.2 MCH 26.4 MCHC 32.6 RDW Std Deviation 44.0 RDW Coeff of Raj 15.0 H Plt Count 300 MPV 9.5 Immature Gran % (Auto) 1.6 Neut % (Auto) 72.7 Lymph % (Auto) 14.4 Glascock % (Auto) 9.8 Eos % (Auto) 0.8 Baso % (Auto) 0.7 Neut # (Auto) 5.60 Lymph # (Auto) 1.11 L [place] # (Auto) 0.75 H Eos # (Auto) 0.06 Baso # (Auto) 0.05 Immature Gran # (Auto) 0.12 Sodium 135 L Potassium 3.3 L Chloride 106 Carbon Dioxide 23 Anion Gap 6 BUN 3 L Creatinine 0.49 L Est Cr Clr Drug Dosing 200.6 Est GFR ( Amer) > 150.0 Est GFR (Non-Af Amer) 140.3 BUN/Creatinine Ratio 6.1 L Glucose 92 Lactate Calcium 9.1 Magnesium 1.9 Iron 15 L TIBC 371 Unsaturated IBC 356 H Transferrin % Sat 4 L Ferritin 39.0 Total Bilirubin Direct Bilirubin AST ALT Alkaline Phosphatase Troponin I High Sens Total Protein Albumin Procalcitonin HCG, Quant Urine Color Urine Appearance Urine pH Ur Specific Hammond Urine Protein Urine Glucose (UA) Urine Ketones Urine Blood Urine Nitrite Urine Bilirubin Urine Urobilinogen Ur Leukocyte Esterase Urine WBC (Auto) Urine RBC (Auto) U Hyaline Cast (Auto) U Epithel Cells (Auto) Urine Bacteria (Auto) SARS-CoV-2 (PCR) Influenza Type A (PCR) Influenza Type B (PCR) RSV (RT-PCR) Diagnostic Findings blood/urine cx's pending PG Care Time/CCT Total # of Minutes Spent Total Time Spent with Patient: Total time spent is greater than 50% in coordination of care (as documented) at patient's floor/unit and/or counseling patient: Coding Level of Care Code 49389 SUB INP/OBS CARE MIN Diagnoses Sepsis A41.9 Sepsis acute organ dysfunction status: unspecified Sepsis type: sepsis due to unspecified organism UTI (urinary tract infection) N30.01 Hematuria presence: with hematuria Urinary tract infection type: acute cystitis Kidney abscess N15.1 Kidney stone on left side N20.0 Z3A.01 Weeks of gestation: less than 8 weeks Hypokalemia E87.6 Iron deficiency anemia D50.9 DVT prophylaxis Z29.9 (1) Sepsis Sepsis acute organ dysfunction status: unspecified Sepsis type: sepsis due to unspecified organism Qualified Code(s): A41.9 - Sepsis, unspecified organism (2) UTI (urinary tract infection) Hematuria presence: with hematuria Urinary tract infection type: acute cystitis Qualified Code(s): N30.01 - Acute cystitis with hematuria (5) Weeks of gestation: less than 8 weeks Qualified Code(s): Z3A.01 - Less than 8 weeks gestation of
--- NOTE | 2022-09-03 19:47 | Billing Data ---
Date of Service September 03, 2022 Attending addendum: I have physically seen this patient, have supervised the medical residents activities, and agree with the H&P unless as otherwise noted. Assessment and Plan: Ureteral stent complication/complicated UTI/7 weeks - N.p.o. after midnight Follow urine culture and sensitivity Continue empiric cefepime 2 g IV every 12 hours Acetaminophen 600 mg p.o. every 6 hours as needed mild pain or fever Consult to urology NSS + KCl 20 mEq at 100 mils per hour 7-week - ultrasound confirmed live fetus Consult INTELLIGENCE SUPPORT OFFICER Remaining orders and notations as noted Coding Level of Care Code 38986 INT INP/OBS CARE 2/55MIN
[2022-09-04 07:45] LABS: Hemoglobin 9.2 g/dl (12.0-16.0); Mean Corpuscular Hemoglobin 26.7 pg (25.0-34.0); Mean Corpuscular Hgb Conc 32.9 g/dL (32.0-36.0); Mean Corpuscular Volume 81.4 fL (80.0-100.0); Mean Platelet Volume 9.8 fL (9.4-12.4); Platelet Count 287 K/uL (130-400); RDW Coefficient of Variation 15.3 % (11.5-14.5); RDW Standard Deviation 45.4 fL (36.4-46.3); Red Blood Count 3.44 M/uL (4.20-5.40); White Blood Count 6.02 K/ul (4.8-10.8)
[2022-09-04] MEDS: CEROVITE ADV FORMULA TAB PO SCH (07:45)
[2022-09-04] MEDS: SODIUM CHLORIDE 0.9% 1000ML 1,000 ML IV SCH (07:47)
[2022-09-04] MEDS: CEFEPIME 1,000 MG in SYRINGE 0 ML IV SCH (07:47)
[2022-09-04 08:06] LABS: Anion Gap 7 (3-11); BUN Creatinine Ratio 6.7 (10-20); Blood Urea Nitrogen 3 mg/dl (6-23); Carbon Dioxide 22 mmol/L (21-32); Chloride 107 mmol/L (98-107); Creatinine Clr Calc Pharmacy 218.5 ml/min; Est GFR (African American) > 150.0 ml/min; Est GFR (Non-African American) 144.2 ml/min; Glucose 77 mg/dl (70-99(Fasting)); Potassium 3.8 mmol/L (3.5-5.1); Sodium 136 mmol/L (136-145)
--- NOTE | 2022-09-04 14:58 | Hospitalist Progress Note ---
Date of Service September 04, 2022 Assessment & Plan (1) Sepsis: Plan: 2nd to UTI and renal abscess. sepsis resolved. cont IV abx therapy. follow blood cultures. unfortunately her urine culture did not grow a specific pathogen. further, I obtained her records today from [facility] and no urine cultures were sent while here. I confirmed that when she left [facility] she took cefuroxime 500mg BID and was compliant with such upon discharge. (2) UTI (urinary tract infection): Plan: complicated - due to presence of ureteral stent, suspected kidney abscess on left, and left-sided kidney stone - all in the setting of current . see #3 below re: abx. (3) Kidney abscess: Plan: suspected, left kidney. initially diagnosed early this month. was 3.4cm on 08/20/22 via ultrasound. now 1.3cm on 09/02/22. this would suggest good treatment response to antibiotics. no surgical intervention needed. The dilemma at this time is which antibiotic to use after discharge. We do not have a specific pathogen identified via any previous or current culture. She became sick again with sepsis despite use of cefuroxime after her d/c from [facility]. She has improved on cefepime therapy while here. I consulted infectious disease due to the complexity of this matter. I spoke with ID twice re: her abx. Recs - d/c cefepime, change to IV rocephin. Plan 14 day course of IV rocephin moving forward. Repeat renal u/s after the 2 weeks is complete to ensure resolution of the renal abscess. If resolved then can stop the rocephin at that time. ID mentioned she asked micro to see if they could speciate any of the multiple organisms that grew - even if it is just the dominant organism. Cont to follow blood cx's. appreciate ID consult & recs. (4) Kidney stone on left side: Plan: At least 1cm in size or larger. s/p ureteral stent placement at [facility] within the last 2 weeks. Stent is in good position based on current imaging. Will need to be exchanged every 6 weeks by urology. (5) : Plan: age estimate 8 6/7 weeks with EDC of 04/09/23. Appreciate OB consultation. At this time there are no active OB issues or concerns. Cont PNV. (6) Hypokalemia: Plan: replaced resolved (7) Iron deficiency anemia: Plan: will recommend Ferrous sulfate supplementation BID at discharge. (8) DVT prophylaxis: Plan: early ambulation SCDS - asked nursing to place them on while resting/sleeping Plan can stop IV fluids today will speak with case management tomorrow re: outpatient IV abx pt's mother updated extensively by phone this evening complex care coordination today including obtaining & reviewing records from [facility], speaking with ID merchandising consultant twice, speaking with pt's mother, 2 visits to bedside - at least 80 minutes of complex care coordination Admission and Anticipated Discharge Date Admission Date: September 03, 2022 Subjective patient feels much better chills resolved no further fever appetite improved no flank/back pain continues with mild suprapubic pain and mild dysuria she gave permission for me to contact her mother and to give her an update she confirms that her mother DOES know about her - they are very open with each other Review of Systems Review of Systems: gen - no fevers/chills cv - no chest pain pulm - no dyspnea GI - no nausea/emesis - foul-smelling urine Physical Exam Physical Exam: gen - NAD, looks much better than previous mouth - MMM neck - no JVD heart - 1/6 AMBER LSB, RRR, s1 s2 lungs - CTA b/l abd - soft NT ND BS+; no flank pain to palpation ext - no edema, pulses 2+ b/l skin - no rash Results & Data Results & Data ([place]) Vital Signs (Past 12 Hours) Vital Signs Temp Pulse Resp BP Pulse Ox O2 Del Method 09/04/22 08:10 Room Air 09/04/22 07:43 36.6 C 64 16 94/58 L 97 Room Air Laboratory Results Laboratory Results - last 24 hr 09/04/22 09/04/22 06:51 06:51 WBC 6.02 RBC 3.44 L Hgb 9.2 L Hct 28.0 L MCV 81.4 MCH 26.7 MCHC 32.9 RDW Std Deviation 45.4 RDW Coeff of Raj 15.3 H Plt Count 287 MPV 9.8 Sodium 136 Potassium 3.8 Chloride 107 Carbon Dioxide 22 Anion Gap 7 BUN 3 L Creatinine 0.45 L Est Cr Clr Drug Dosing 218.5 Est GFR ( Amer) > 150.0 Est GFR (Non-Af Amer) 144.2 BUN/Creatinine Ratio 6.7 L Glucose 77 Calcium 9.0 Diagnostic Findings blood cx's to date - no growth urine cx - multiple organisms PG Care Time/CCT Total # of Minutes Spent Total Time Spent with Patient: Total time spent is greater than 50% in coordination of care (as documented) at patient's floor/unit and/or counseling patient: Prolonged Care Time Prolonged Care Time: Yes Total Prolonged Care Time: 80 Coding Level of Care Code 14246 SUB INP/OBS CARE 3/50MIN (25 - SIGNIFICANT, SEPARATELY IDENTIFIABLE ) Diagnoses Sepsis A41.9 Sepsis acute organ dysfunction status: unspecified Sepsis type: sepsis due to unspecified organism UTI (urinary tract infection) N30.01 Hematuria presence: with hematuria Urinary tract infection type: acute cystitis Kidney abscess N15.1 Kidney stone on left side N20.0 Z3A.01 Weeks of gestation: less than 8 weeks Hypokalemia E87.6 Iron deficiency anemia D50.9 DVT prophylaxis Z29.9 Additional Codes Prolonged Care Time - Prolonged Care Time: Yes ([id number]) (1) Sepsis Sepsis acute organ dysfunction status: unspecified Sepsis type: sepsis due to unspecified organism Qualified Code(s): A41.9 - Sepsis, unspecified organism (2) UTI (urinary tract infection) Hematuria presence: with hematuria Urinary tract infection type: acute cystitis Qualified Code(s): N30.01 - Acute cystitis with hematuria (5) Weeks of gestation: less than 8 weeks Qualified Code(s): Z3A.01 - Less than 8 weeks gestation of
--- NOTE | 2022-09-04 16:01 | Infectious Disease Consult ---
Date of Consultation September 04, 2022 Assessment & Plan (1) UTI (urinary tract infection): Plan #Complicated UTI with presumed L renal abscess -s/p tx with CTX, and L ureteral stent placement [facility], discharged 08/26 on ceftin. U/s prior to discharge had showed improvement of abscess vs. cyst. Pt denies any missed doses/noncompliance with ceftin and reports she felt better until 08/31. -pt presents with increased L flank pain, associated with fever, rigors and dysuria/urinary frequency. Leukocytosis, but nl cr and procalcitonin. UA with 10-30 WBC, greater than 30 RBC, greater than 30 epithelial cells, negative bacteria. Portable chest x-ray showed no active disease. Renal ultrasound showed significant decrease in size of complex cystic lesion within the upper pole of the left kidney compared to ultrasound in August 21, 2022 which now measures 1.3 cm and is relatively simple appearing. Left ureteral stent is in place and no hydronephrosis. 1.2 cm calculus within left lower pole noted. -Ucxs repeatedly have grown multiple organisms -/ blood cultures no growth to date. / urine culture with more than 3 types of organisms present, all low counts mixed probable skin lena. -Pt feels much better- reports sxs have resolved Rec: Requested that micro lab perform additional identification and susceptibility testing of multiple organisms in Urine culture as feasible. If Bcxs and Ucx remain unhelpful, given patient's significant improvement on cefepime, and previously on CTX at [facility], with subsequent outpatient failure on ceftin, consideration that pt will need to remain on IV cefepime or CTX to complete 2 weeks, with repeat u/s of L kidney to show resolution prior to discontinuing abx. Discussed with primary team and we agreed to switch cefepime to CTX 2 g IV q24 for empiric coverage. Pt is in process of deciding whether to continue and in meantime, will have limited options for abx. Please page with any questions. Jolene Palacios M.D. [facility] Pager [phone] Consultation Information Consultation was provided via telemedicine using two-way real-time interactive telecommunication between the patient and the telemedicine provider. For the duration of the visit, the provider was performing the assessment from a different facility than the patient. This includesuse of bluetooth stethoscope forauscultationperformed by the telepresenter that the telemedicine provider can hear if described in the physical exam. Costumer contact information: Please call [facility] Connect Call Center . (Phone Number For Physician Use Only) After establishing a telemedicine visit, patient was: Patient was verified with two unique identifiers, Patient/authorized rep acknowledged consent and unde rstanding and Gave permission to continue telehealth session Time Spent with Patient: Initial => 40 min History of Present Illness Attending Physician: Carl Jeong History of Present Illness ID consult requested for antibiotic management in this 22-year-old female, past medical history of depression, recurrent UTIs, currently approximately 8 weeks , who was recently admitted 08/21/2022 with fever, back pain and dysuria. She reportedly had been diagnosed with a UTI as an outpatient and placed on Keflex. Her test was positive at that time. Patient continued to be febrile with increasing pain and presented to the ER. A renal ultrasound showed a 3.4 cm complex lesion within the upper pole of the left kidney which contained a fluid level with possible thickened wall and urothelial thickening- this was suspicious for renal abscess. There was also echogenic foci approximately 1.8 cm within the left collecting system which favored left renal calculi and bladder wall thickening. Patient was transferred to [facility] for IR drainage and she was started on ceftriaxone empirically. At [facility] where patient was transferred on 08/22, per urology notes in [facility], she underwent cystoscopy with insertion of ureteral stent. Ultrasound 08/25 showed nonobstructing left renal calculus with possible abscess and ultrasound on 08/26 revealed improvement in upper left pole abnormality representing improvement in abscess, hematoma, or cyst. Urology thought ultrasound on 08/26 showed a simple cyst without evidence for abscess. On 08/26, patient was discharged on Ceftin p.o. with plan for follow-up culture 3 to 4 days after last antibiotic dose and follow-up renal ultrasound in 1 to 2 weeks. It was recommended that she follow- up with urology outpatient for probable ureteral stent replacement usp throu gh and then after complete, evaluation of the left renal calculus for possible other intervention. I do not see any culture results in [facility]- just a MRSA swab which was negative. Patient reports that she felt ok after discharge, other than some residual L flank discomfort, until Thursday 08/31 when she had worsening pain L flank. She denies any problems with the abx or missed doses. She then developed fever, rigors,(which she states also occurred prior to earlier admission), nausea, urinary frequency and dysuria. She reported constipation rather than diarrhea. Pt reports that while she has h/o UTI, she does not recall or recognize any names or types of prior antibiotics. She presented to the ED 09/02. In the ED, temperature was 38.2, heart rate 156, respiratory rate 16, O2 saturation 98% on room air, blood pressure 144/93. Admission labs significant for WBC 12.44, 87% neutrophils, hemoglobin 10.4, negative COVID/flu/RSV, creatinine 0.45, procalcitonin less than 0.05. UA with 10-30 WBC, greater than 30 RBC, greater than 30 epithelial cells, negative bacteria. Portable chest x-ray showed no active disease. Renal ultrasound showed significant decrease in size of complex cystic lesion within the upper pole of the left kidney compared to ultrasound in August 21, 2022 which now measures 1.3 cm and is relatively simple appearing. Left ureteral stent is in place and no hydronephrosis. 1.2 cm calculus within left lower pole noted. Patient was seen by OB- it is noted that pt is in process of deciding whether to continue with . Patient was also seen by urology who did not think intervention needed. 2/ blood cultures no growth to date. 2/15 urine culture with more than 3 types of organisms present, all low counts mixed probable skin lena. 2/2 blood cultures were negative as well. 2/2 urine culture which grew 3 types of organisms all moderate counts probably skin lena. Reporting fever along with increased urinary frequency, chills, dysuria and constipation. Pt has been afebrile. She reports she now feels much better- with resolution of symptoms. She feels able to go home. Allergies Allergy/AdvReac Type Severity Reaction Status Date / Time No Known Allergies Allergy Verified 09/02/22 21:35 Home Medications Medication Instructions Recorded Confirmed Type cefuroxime axetil 500 mg tablet 500 mg PO BID 09/02/22 09/02/22 History multivit-iron 18 mg-folic acid 400 1 tab PO DAILY 09/02/22 09/02/22 History mcg-calcium 500 mg-minerals tablet (Women's One Daily) Patient History Medical History Currently 5 weeks as of 08/20/2022 UTI (urinary tract infection) Surgical History No significant past surgical history Social History Smoking Status: Never smoker Hx Alcohol Use: No Hx Substance Use: No Preferred Language: Bahamian Communication Ability: Effective Paste Thinner Required: No Beliefs That Will Affect Care: None Current Living Situation: Other Current Living Situation Comment: APARTMENT WITH ROOMMATES Feels Safe at Home: Yes Safety Concerns: Feels Safe At This Time Assistive Devices: None Results & Data ([facility]) Vital Signs (Past 12 Hours) Vital Signs Temp Pulse Resp BP Pulse Ox O2 Del Method 09/04/22 15:40 36.8 C 71 16 102/67 100 Room Air 09/04/22 08:10 Room Air 09/04/22 07:43 36.6 C 64 16 94/58 L 97 Room Air Laboratory Results 09/02/22 21:09 Urine Culture - Final Urine,Clean Catch More than three types of organisms present, all low counts mixed probable skin lena. No further identifications or sensitivities to follow. 09/02/22 21:27 Aerobic Blood Culture - Preliminary Blood No growth in Aerobic bottle after 24 hours. Anaerobic Blood Culture - Preliminary No growth in Anaerobic bottle after 24 hours. 09/02/22 20:58 Aerobic Blood Culture - Preliminary Blood No growth in Aerobic bottle after 24 hours. Anaerobic Blood Culture - Preliminary No growth in Anaerobic bottle after 24 hours. 09/04/22 09/04/22 06:51 06:51 WBC 6.02 RBC 3.44 L Hgb 9.2 L Hct 28.0 L MCV 81.4 MCH 26.7 MCHC 32.9 RDW Std Deviation 45.4 RDW Coeff of Raj 15.3 H Plt Count 287 MPV 9.8 Sodium 136 Potassium 3.8 Chloride 107 Carbon Dioxide 22 Anion Gap 7 BUN 3 L Creatinine 0.45 L Est Cr Clr Drug Dosing 218.5 Est GFR ( Amer) > 150.0 Est GFR (Non-Af Amer) 144.2 BUN/Creatinine Ratio 6.7 L Glucose 77 Calcium 9.0 Diagnostic Findings Chest X-Ray 09/02/22 20:24 SINGLE VIEW CHEST CLINICAL HISTORY: Sepsis. FINDINGS: An AP, portable, upright chest radiograph is obtained. No prior studies are available for comparison at the time of dictation. The patient was shielded due to . The cardiomediastinal silhouette is unremarkable. The lungs and pleural spaces are clear. No pneumothorax is seen. The bony thorax is grossly intact. IMPRESSION: No active disease in the chest. ACT 112: Negative or not required by law. Electronically signed by: Hermes Lott M.D. 09/03/2022 7:04 AM Ultrasound 09/02/22 20:33 ULTRASOUND OF THE GRAVID UTERUS AND PELVIS CLINICAL HISTORY: . Left flank pain. COMPARISON STUDY: No prior TECHNIQUE: Real-time, grayscale, and color flow sonography of the gravid uterus and pelvis is performed transabdominally. Images are reviewed in the transverse and longitudinal planes. FINDINGS: Uterus: The gravid uterus is normal in size and heterogeneous and echotexture. Gestation: There is a single live intrauterine gestation with a heart rate of 181 bpm. The crown-rump length measures 2.0 cm, corresponding to an estimated age of 8 weeks 5 days. The mean gestational sac diameter measures 3.48 cm, corresponding to an estimated age of 8 weeks 4 days. A yolk sac is identified. Ovaries: The right ovary was not visualized due to overlying bowel. The left ovary is normal in appearance, measuring 2.8 x 0.9 x 1.5 cm. Normal Doppler waveforms are shown within the left ovary. Pelvis: There is no free fluid in the cul-de-sac. No concerning adnexal lesion is seen. IMPRESSION: 1. There is a single live intrauterine gestation with an estimated age of 8 weeks 5 days by crown-rump measurement. 2. No adnexal abnormality is seen. ACT 112: Negative or not required by law. Electronically signed by: Hermes Lott M.D. 09/03/2022 7:54 AM Renal Ultrasound 09/02/22 20:34 RENAL ULTRASOUND CLINICAL HISTORY: Left flank pain. . Recent stent placement. COMPARISON STUDY: Renal ultrasound August 21, 2022. TECHNIQUE: Sonography of the kidneys and the urinary bladder was performed. Please note that the OB ultrasound reported separately. FINDINGS: The right kidney measures 11.8 x 4.8 x 4.3 cm and the left measures 13.3 x 5.7 x 5 cm. There is no hydronephrosis. 1.2 cm calculus within the lower pole of the left kidney is noted. The complex cystic lesion within the upper pole of the left kidney on ultrasound August 21, 2022 has significantly decreased in size since ultrasound of August 21, 2022. This may have reflected an abscess. This now measures 1.3 cm and is relatively simple appearing. No new renal fluid collections are present. Distal aspect of the left ureteral stent is noted within the bladder. IMPRESSION: 1. Left ureteral stent in place. No hydronephrosis. 2. Significant decrease in size of the previously described complex cystic lesion/abscess within the upper pole of the left kidney on ultrasound of August 21, 2022. This now measures 1.2 cm. 3. Left-sided nephrolithiasis. ACT 112: Negative or not required by law. Electronically signed by: Dimitri Evans M.D. 09/03/2022 6:36 AM Medications Administered Current Medications Acetaminophen (Acetaminophen 325 Mg Tab) 650 mg PO Q4H PRN PRN Reason: pain/fever Stop: 10/03/22 02:10 Last Admin: 09/03/22 07:58 Dose: 650 mg Cefepime HCl 1,000 mg/ Syringe 10 mls @ 5 mls/min IV Q12H JEWELL; Protocol Stop: 09/13/22 07:59 Last Admin: 09/04/22 07:47 Dose: 5 mls/min Multivitamins/Minerals (Cerovite Adv Formula Tab) 1 tab PO DAILY JEWELL Stop: 10/03/22 08:59 Last Admin: 09/04/22 07:45 Dose: 1 tab Polyethylene Glycol (Polyethylene (Miralax) 17 Gm Pack) 17 gm PO DAILY PRN PRN Reason: Constipation Stop: 10/03/22 02:10 (1) UTI (urinary tract infection) Hematuria presence: with hematuria Urinary tract infection type: acute cystitis Qualified Code(s): N30.01 - Acute cystitis with hematuria
[2022-09-04] MEDS: cefTRIAXone SODIUM 2,000 MG in DEXTROSE 5% 50 ML IV SCH (17:02)
[2022-09-05 06:50] LABS: Anion Gap 6 (3-11); BUN Creatinine Ratio 15.1 (10-20); Blood Urea Nitrogen 8 mg/dl (6-23); Calcium 9.8 mg/dl (8.5-10.1); Carbon Dioxide 25 mmol/L (21-32); Chloride 105 mmol/L (98-107); Creatinine Clr Calc Pharmacy 185.5 ml/min; Est GFR (African American) > 150.0 ml/min; Est GFR (Non-African American) 136.7 ml/min; Glucose 78 mg/dl (70-99(Fasting)); Potassium 3.5 mmol/L (3.5-5.1); Sodium 136 mmol/L (136-145)
[2022-09-05] MEDS: CEROVITE ADV FORMULA TAB PO SCH (09:04)
[2022-09-05] MEDS: cefTRIAXone SODIUM 2,000 MG in DEXTROSE 5% 50 ML IV SCH (16:42)
--- NOTE | 2022-09-05 20:13 | Hospitalist Progress Note ---
Date of Service September 05, 2022 Assessment & Plan (1) Sepsis: Plan: 2nd to UTI and renal abscess. sepsis resolved. cont IV abx therapy with rocephin 2 gm IV daily. blood cultures remain negative. unfortunately her urine culture did not grow a specific pathogen. further, I obtained her records from [facility] and no urine cultures were sent while here. I confirmed that when she left [facility] she took cefuroxime 500mg BID and was compliant with such upon discharge. (2) UTI (urinary tract infection): Plan: complicated - due to presence of ureteral stent, suspected kidney abscess on left, and left-sided kidney stone - all in the setting of current . see #3 below re: abx. (3) Kidney abscess: Plan: suspected, left kidney. initially diagnosed early this month. was 3.4cm on 08/20/22 via ultrasound. now 1.3cm on 09/02/22. this would suggest good treatment response to prior antibiotics. no surgical intervention needed. We do not have a specific pathogen identified via any previous or current culture. She became sick again with sepsis despite use of cefuroxime after her d/c from [facility]. She had improved on cefepime therapy while here. ID consult much appreciated; recommended d/c of cefepime, change to IV rocephin, and complete 14 days of IV rocephin. Today is day #2 of rocephin. Repeat renal u/s after the 2 weeks is complete to ensure resolution of the renal abscess. If resolved then can stop the rocephin at that time. ID mentioned she asked micro to see if they could speciate any of the multiple organisms that grew - even if it is just the dominant organism. This is pending. Cont to follow blood cx's. appreciate ID consult & recs. (4) Kidney stone on left side: Plan: At least 1cm in size or larger. s/p ureteral stent placement at [facility] within the last 2 weeks. Stent is in good position based on current imaging. Will need to be exchanged every 6 weeks by urology. (5) : Plan: age estimate 8 6/7 weeks with EDC of 04/09/23. Appreciate OB consultation. At this time there are no active OB issues or concerns. Cont PNV. (6) Hypokalemia: Plan: replaced resolved (7) Iron deficiency anemia: Plan: start Ferrous sulfate 325mg BID. (8) DVT prophylaxis: Plan: early ambulation SCDS Plan unfortunately it appears [facility] is closed this weekend thus, cannot set up outpatient IV abx at this time she may need to stay hospitalized through Wednesday Admission and Anticipated Discharge Date Admission Date: September 03, 2022 Subjective patient w/o any new complaints feels good no fevers, chills eating well suprapubic pain improved no flank pain or back pain denies dizziness or lightheadedness Review of Systems Review of Systems: gen - mild fatigue - unchanged cv - no chest pain, no orthopnea pulm - no dyspnea GI - no abd pain, nausea or emesis; no flank pain - dysuria and suprapubic pain improved Physical Exam Physical Exam: gen - NAD, resting comfortably in bed mouth - MMM neck - no JVD heart - /6 AMBER mid-LSB, RRR, s1 s2 lungs - CTA b/l abd - soft NT ND BS+; no flank pain to palpation ext - no edema, pulses 2+ b/l skin - no rash Results & Data Results & Data ([facility]) Vital Signs (Past 12 Hours) Vital Signs Temp Pulse Resp BP Pulse Ox O2 Del Method 09/05/22 07:34 36.6 C 59 L 16 97/60 L 98 Room Air 09/04/22 22:16 36.7 C 81 16 111/66 95 Room Air Intake and Output 09/05/22 09/05/22 09/05/22 06:59 14:59 22:59 Intake Total 70 / 70 Output Total 600 / 600 Balance -530 / -530 Intake: IV 70 / 70 cefTRIAXone SODIUM 2,000 mg In 70 / 70 Dextrose 5% 50 ml @ 100 mls/hr IV Q24H [facility] Rx#:[id number] Output: Urine 600 / 600 Laboratory Results Laboratory Results - last 24 hr 09/05/22 05:52 Sodium 136 Potassium 3.5 Chloride 105 Carbon Dioxide 25 Anion Gap 6 BUN 8 Creatinine 0.53 L Est Cr Clr Drug Dosing 185.5 Est GFR ( Amer) > 150.0 Est GFR (Non-Af Amer) 136.7 BUN/Creatinine Ratio 15.1 Glucose 78 Calcium 9.8 Diagnostic Findings blood cx's from admission negative PG Care Time/CCT Total # of Minutes Spent Total Time Spent with Patient: Total time spent is greater than 50% in coordination of care (as documented) at patient's floor/unit and/or counseling patient: Coding Level of Care Code 07142 SUB INP/OBS CARE 235MIN Diagnoses Sepsis A41.9 Sepsis acute organ dysfunction status: unspecified Sepsis type: sepsis due to unspecified organism UTI (urinary tract infection) N30.01 Hematuria presence: with hematuria Urinary tract infection type: acute cystitis Kidney abscess N15.1 Kidney stone on left side N20.0 Z3A.01 Weeks of gestation: less than 8 weeks Hypokalemia E87.6 Iron deficiency anemia D50.9 DVT prophylaxis Z29.9 (1) Sepsis Sepsis acute organ dysfunction status: unspecified Sepsis type: sepsis due to unspecified organism Qualified Code(s): A41.9 - Sepsis, unspecified organism (2) UTI (urinary tract infection) Hematuria presence: with hematuria Urinary tract infection type: acute cystitis Qualified Code(s): N30.01 - Acute cystitis with hematuria (5) Weeks of gestation: less than 8 weeks Qualified Code(s): Z3A.01 - Less than 8 weeks gestation of
[2022-09-06 06:34] LABS: Hematocrit (blood only) 29.2 % (37.0-47.0); Hemoglobin 9.6 g/dl (12.0-16.0); Mean Corpuscular Hemoglobin 26.5 pg (25.0-34.0); Mean Corpuscular Hgb Conc 32.9 g/dL (32.0-36.0); Mean Corpuscular Volume 80.7 fL (80.0-100.0); Mean Platelet Volume 9.7 fL (9.4-12.4); Platelet Count 344 K/uL (130-400); RDW Coefficient of Variation 15.1 % (11.5-14.5); RDW Standard Deviation 44.3 fL (36.4-46.3); Red Blood Count 3.62 M/uL (4.20-5.40); White Blood Count 5.59 K/ul (4.8-10.8)
[2022-09-06 06:51] LABS: Creatinine Clr Calc Pharmacy 209.2 ml/min; Est GFR (African American) > 150.0 ml/min; Est GFR (Non-African American) 142.2 ml/min
[2022-09-06 07:20] LABS: Basophils # (auto) 0.06 K/uL (0-0.2); Basophils % (auto) 1.1 %; Eosinophils # (auto) 0.16 K/uL (0-0.50); Eosinophils % (auto) 2.9 %; Immature Granulocytes # (auto) 0.03 K/uL (0.01-0.20); Immature Granulocytes % (auto) 0.5 %; Lymphocytes # (auto) 2.28 K/uL (1.2-3.4); Lymphocytes % (auto) 40.8 %; Monocytes % (auto) 7.2 %; Neutrophils # (auto) 2.66 K/uL (1.40-6.50); Neutrophils % (auto) 47.5 %; Ovalocytes 1+
[2022-09-06] MEDS: CEROVITE ADV FORMULA TAB PO SCH (08:21)
[2022-09-06] MEDS ORDERED: SODIUM CHLORIDE 0.9% 1000ML 500 ML IV ONE (09:35)
[2022-09-06] MEDS: FERROUS SULFATE 325 MG TAB PO SCH ×2 (10:21→16:40)
[2022-09-06] MEDS: cefTRIAXone SODIUM 2,000 MG in DEXTROSE 5% 50 ML IV SCH (16:40)
--- NOTE | 2022-09-06 19:57 | Hospitalist Progress Note ---
Date of Service September 06, 2022 Assessment & Plan (1) Sepsis: Plan: 2nd to UTI and renal abscess. sepsis resolved. cont IV abx therapy with rocephin 2 gm IV daily. blood cultures remain negative. unfortunately her urine culture did not grow a specific pathogen. ID did ask micro to try & speciated the multiple organisms - results as above. rené is in low counts. corynebacterium is contaminant. SUPERVISING ARCHITECT may be culprit due to recent instrumentation of urinary tract (stent placement on L). (2) UTI (urinary tract infection): Plan: complicated - due to presence of ureteral stent, suspected kidney abscess on left, and left-sided kidney stone - all in the setting of current . see #3 below re: abx. (3) Kidney abscess: Plan: suspected, left kidney. initially diagnosed early this month. was 3.4cm on 08/20/22 via ultrasound. now 1.3cm on 09/02/22. this would suggest good treatment response to prior antibiotics. blood cx's negative. no surgical intervention needed. We do not have a specific pathogen identified via any previous or current culture. She became sick again with sepsis despite use of cefuroxime after her d/c from [facility]. She had improved on cefepime therapy while here. ID consult much appreciated; recommended d/c of cefepime, change to IV rocephin, and complete 14 days of IV rocephin. Today is day #3 of rocephin. Repeat renal u/s after the 2 weeks is complete to ensure resolution of the renal abscess. If resolved then can stop the rocephin at that time. ID mentioned she asked micro to see if they could speciate any of the multiple organisms that grew - even if it is just the dominant organism. This has been completed with results as above. Coag neg staph as culprit pathogen? Hard to say; either way she is clinically well with current IV rocephin. appreciate ID consult & recs. (4) Kidney stone on left side: Plan: At least 1cm in size or larger. s/p ureteral stent placement at [facility] within the last 2 weeks. Stent is in good position based on current imaging. Will need to be exchanged every 6 weeks by urology. (5) : Plan: age estimate 9 weeks with EDC of 04/09/23. Appreciate OB consultation. At this time there are no active OB issues or concerns. Cont PNV. (6) Hypokalemia: Plan: replaced resolved (7) Iron deficiency anemia: Plan: started Ferrous sulfate 325mg BID. (8) DVT prophylaxis: Plan: early ambulation SCDS Plan unfortunately it appears [facility] is closed this weekend thus, cannot set up outpatient IV abx at this time will set this up tomorrow on Wednesday gave 500cc of additional IV fluid due to low-normal BP this am however, patient is asymptomatic from the low-normal BP and is well-hydrated creatinine is stable Admission and Anticipated Discharge Date Admission Date: September 03, 2022 Subjective despite low-normal BP this am she has had NO dizziness or lightheadedness or difficulty ambulating making good urine with normal creatinine she feels well no flank pain no back pain no abd pain no suprapubic pain dysuria resolved eating well Review of Systems Review of Systems: gen - no fevers or chills cv - no cp, no orthopnea pulm - no cough, no dyspnea GI - no N/V; denies diarrhea - no vaginal bleeding Physical Exam Physical Exam: gen - NAD, resting comfortably in bed mouth - MMM neck - no JVD heart - 1/6 AMBER mid-LSB, RRR, s1 s2 lungs - CTA b/l abd - soft NT ND BS+; no flank pain to palpation; no suprapubic pain to palpation ext - no edema, pulses 2+ b/l skin - no rash psych - affect wnl; a/o x 3 Results & Data Results & Data ([facility]) Vital Signs (Past 12 Hours) Vital Signs Temp Pulse Resp BP Pulse Ox O2 Del Method 09/06/22 14:57 36.7 C 60 16 112/68 97 Room Air 09/06/22 08:21 Room Air Laboratory Results Laboratory Results - last 24 hr 09/06/22 09/06/22 05:59 05:59 WBC 5.59 RBC 3.62 L Hgb 9.6 L Hct 29.2 L MCV 80.7 MCH 26.5 MCHC 32.9 RDW Std Deviation 44.3 RDW Coeff of Raj 15.1 H Plt Count 344 MPV 9.7 Immature Gran % (Auto) 0.5 Neut % (Auto) 47.5 Lymph % (Auto) 40.8 Hawkins % (Auto) 7.2 Eos % (Auto) 2.9 Baso % (Auto) 1.1 Neut # (Auto) 2.66 Lymph # (Auto) 2.28 Hawkins # (Auto) 0.40 Eos # (Auto) 0.16 Baso # (Auto) 0.06 Immature Gran # (Auto) 0.03 Ovalocytes 1+ Creatinine 0.47 L Est Cr Clr Drug Dosing 209.2 Est GFR ( Amer) > 150.0 Est GFR (Non-Af Amer) 142.2 Diagnostic Findings blood cx's from admission negative urine cx from admission - <10,000 CFU c albicans; <10,000 CFU corynebacterium; 10,000 CFU SUPERVISING ARCHITECT called lab - they cannot give sensitivities of the SUPERVISING ARCHITECT (multiple SUPERVISING ARCHITECT organisms grew) PG Care Time/CCT Total # of Minutes Spent Total Time Spent with Patient: Total time spent is greater than 50% in coordination of care (as documented) at patient's floor/unit and/or counseling patient: Coding Level of Care Code 51149 SUB INP/OBS CARE 35MIN Diagnoses Sepsis A41.9 Sepsis acute organ dysfunction status: unspecified Sepsis type: sepsis due to unspecified organism UTI (urinary tract infection) N30.01 Hematuria presence: with hematuria Urinary tract infection type: acute cystitis Kidney abscess N15.1 Kidney stone on left side N20.0 Z3A.01 Weeks of gestation: less than 8 weeks Hypokalemia E87.6 Iron deficiency anemia D50.9 DVT prophylaxis Z29.9 (1) Sepsis Sepsis acute organ dysfunction status: unspecified Sepsis type: sepsis due to unspecified organism Qualified Code(s): A41.9 - Sepsis, unspecified organism (2) UTI (urinary tract infection) Hematuria presence: with hematuria Urinary tract infection type: acute cystitis Qualified Code(s): N30.01 - Acute cystitis with hematuria (5) Weeks of gestation: less than 8 weeks Qualified Code(s): Z3A.01 - Less than 8 weeks gestation of
[2022-09-07] MEDS: CEROVITE ADV FORMULA TAB PO SCH (08:08)
[2022-09-07] MEDS: FERROUS SULFATE 325 MG TAB PO SCH (08:08)
--- NOTE | 2022-09-07 10:34 | Infectious Disease Progress Nt ---
Date of Service September 07, 2022 Assessment & Plan (1) UTI (urinary tract infection): Plan #Complicated UTI with presumed L renal abscess -s/p tx with CTX, and L ureteral stent placement [place], discharged 08/26 on ceftin. U/s prior to discharge had showed improvement of abscess vs. cyst. Pt denies any missed doses/noncompliance with ceftin and reports she felt better until 08/31. -pt admitted with increased L flank pain, associated with fever, rigors and dysuria/urinary frequency. Leukocytosis, but nl cr and procalcitonin. UA with 10-30 WBC, greater than 30 RBC, greater than 30 epithelial cells, negative bacteria. Portable chest x-ray showed no active disease. Renal ultrasound showed significant decrease in size of complex cystic lesion within the upper pole of the left kidney compared to ultrasound in August 21, 2022 which now measures 1.3 cm and is relatively simple appearing. Left ureteral stent is in place and no hydronephrosis. 1.2 cm calculus within left lower pole noted. -Ucxs repeatedly have grown multiple organisms -/ blood cultures no growth to date. 2/ urine culture with more than 3 types of organisms present, all low counts mixed probable skin lena. -Pt feels much better- reports sxs have resolved Rec: Requested that micro lab perform additional identification and susceptibility testing of multiple organisms in Urine culture as feasible- Poornima albicans/dubliniensis, [employer] and Corynebacterium identified. These organisms are of questionable significance, particularly given low levels present and clinical and radiographic improvement on CTX, so I do not think they need to be targeted at this time, with noted context of current . Bcxs remain NGTD. Given patient's significant improvement on cefepime, and previously on CTX at [facility], with subsequent outpatient failure on ceftin, recommend CTX to complete 2 weeks, with repeat u/s of L kidney to show resolution prior to discontinuing abx. Advised pt to monitor midline site and for diarrhea/abd pain and seek medical care if concerns. Please page with any questions. Jolene Palacios M.D. [facility] [employer] Pager [phone] Admission and Anticipated Discharge Date Admission Date: September 03, 2022 Subjective Subsequent visit was provided via telemedicine using two-way real-time interactive telecommunication between the patient and the telemedicine provider. For the duration of the visit, the provider was performing the assessment from a different facility than the patient. This includesuse of bluetooth stethoscope forauscultationperformed by the telepresenter that the telemedicine provider can hear if described in the physical exam. Hand Bulldozer contact information: Please call ID Connect Call Center . (Phone Number For Physician Use Only) After establishing a telemedicine visit, patient was: Patient was verified with two unique identifiers, Patient/authorized rep acknowledged consent and understanding and Gave permission to continue telehealth session Time Spent with Patient: Subsequent => 25 min Pt reports she continues to feel much better- she denies any L flank discomfort, except on occasion when she urinates she feels brief discomfort that resolves when she stops urinating. She denies any increased frequency or difficulty with urination, denies dysuria. She just had a midline placed and area is sore. No fevers, abd pain or diarrhea. Physical Exam Physical Exam: PE: Gen: Awake, alert, NAD HEENT: anicteric Resp: no resp distress on RA Abd: Soft, mild tenderness suprapubic area, ND Back: no L CVAT Extr: no c/c/e Skin: R midline without any erythema- slightly tender per pt above insertion site Results & Data ([facility]) Vital Signs (Past 12 Hours) Vital Signs Temp Pulse Resp BP Pulse Ox O2 Del Method 09/07/22 07:37 36.6 C 60 14 94/59 L 98 Room Air 09/06/22 22:36 36.9 C 61 17 101/59 L 97 Room Air Laboratory Results 09/07/22 07:08 C-Reactive Protein 1.81 H Medications Administered Current Medications Acetaminophen (Acetaminophen 325 Mg Tab) 650 mg PO Q4H PRN PRN Reason: pain/fever Stop: 10/03/22 02:10 Last Admin: 09/03/22 07:58 Dose: 650 mg Ferrous Sulfate (Ferrous Sulfate 325 Mg Tab) 325 mg PO BIDM JEWELL Stop: 10/06/22 09:39 Last Admin: 09/07/22 08:08 Dose: 325 mg Ceftriaxone Sodium 2,000 mg/ (Dextrose) 70 mls @ 100 mls/hr IV Q24H JEWELL; Protocol Stop: 09/14/22 16:59 Last Infusion: 09/06/22 17:29 Dose: Infused Multivitamins/Minerals (Cerovite Adv Formula Tab) 1 tab PO DAILY JEWELL Stop: 10/03/22 08:59 Last Admin: 09/07/22 08:08 Dose: 1 tab Polyethylene Glycol (Polyethylene (Miralax) 17 Gm Pack) 17 gm PO DAILY PRN PRN Reason: Constipation Stop: 10/03/22 02:10 (1) UTI (urinary tract infection) Hematuria presence: with hematuria Urinary tract infection type: acute cystitis Qualified Code(s): N30.01 - Acute cystitis with hematuria
--- NOTE | 2022-09-07 12:41 | Discharge Summary ---
Date of Service September 07, 2022 Admission HPI Per Admitting Provider 22yo Female PMH depression currently 7 weeks here for fever ongoing 1 day. Patient states several weeks ago she came to [facility] was found to be concerning for left kidney abcess transferred to [facility] for IR. Also noted to have a kidney stone in L lower pole. At [facility] they determined she did not have an abcess more likely to be a cyst, placed her on antibiotics cefuroxime, placed a stent in her left kidney sent her home. Patient states since she left the hospital she has been getting more urinary frequency, as of today began having fever chills fatigue SOB with exertion nausea confusion brain fog burning with urination and constipation. Several weeks ago prior to hospitalization, patient discovered she was , discontinued her celexa at that time. Patient denies any other PMH or medication s, not on alcohol or smoking. Discharge Exam gen - NAD, resting comfortably in bed mouth - MMM neck - no JVD heart - 1/6 AMBER mid-LSB, RRR, s1 s2 lungs - CTA b/l abd - soft NT ND BS+; no flank pain to palpation; no suprapubic pain to palpation ext - no edema, pulses 2+ b/l skin - no rash psych - affect wnl; a/o x 3 Discharge Data Allergies Allergy/AdvReac Type Severity Reaction Status Date / Time No Known Allergies Allergy Verified 09/02/22 21:35 Consultations 09/03/22 00:07 ED Decision to Admit Stat 09/03/22 01:00 Consult Obstetrics Routine Consult Urology Routine 09/04/22 14:37 Consult Infectious Diseases Routine Ordered Studies 09/02/22 20:33 US OB <= 14 weeks fetus Urgent 09/02/22 20:34 US renal/blad retro comp Urgent Hospital Course (1) Sepsis: 2nd to UTI and renal abscess. sepsis resolved. cont IV abx therapy with rocephin 2 gm IV daily. blood cultures remain negative. unfortunately her urine culture did not grow a specific pathogen. ID did ask micro to try & speciated the multiple organisms - results as above. rené is in low counts. corynebacterium is contaminant. TRANSITIONAL CARE LIAISON may be culprit due to recent instrumentation of urinary tract (stent placement on L). (2) UTI (urinary tract infection): complicated - due to presence of ureteral stent, suspected kidney abscess on left, and left-sided kidney stone - all in the setting of current . see #3 below re: abx. (3) Kidney abscess: suspected, left kidney. initially diagnosed early this month. was 3.4cm on 08/20/22 via ultrasound. now 1.3cm on 09/02/22. this would suggest good treatment response to prior antibiotics. blood cx's negative. no surgical intervention needed. We do not have a specific pathogen identified via any previous or current culture. She became sick again with sepsis despite use of cefuroxime after her d/c from [facility]. She had improved on cefepime therapy while here. ID consult much appreciated; recommended d/c of cefepime, change to IV rocephin, and complete 14 days of IV rocephin. Today is day #3 of rocephin. Repeat renal u/s after the 2 weeks is complete to ensure resolution of the renal abscess. If resolved then can stop the rocephin at that time. ID mentioned she asked micro to see if they could speciate any of the multiple organisms that grew - even if it is just the dominant organism. This has been completed with results as above. Coag neg staph as culprit pathogen? Hard to say; either way she is clinically well with current IV rocephin. appreciate ID consult & recs. (4) Kidney stone on left side: At least 1cm in size or larger. s/p ureteral stent placement at [facility] within the last 2 weeks. Stent is in good position based on current imaging. Will need to be exchanged every 6 weeks by urology. (5) : age estimate 9 weeks with EDC of 04/09/23. Appreciate OB consultation. At this time there are no active OB issues or concerns. Cont PNV. (6) Hypokalemia: replaced resolved (7) Iron deficiency anemia: started Ferrous sulfate 325mg BID. (8) DVT prophylaxis: early ambulation SCDS Discharge Plan Discharge Items Patient Disposition: Home - Self-Care Reason For Visit: FEVER UTI Discharge Diagnosis: 1. Urinary tract infection 2. Left-sided kidney abscess 3. Left-sided kidney stone 4. Left-sided ureteral stent 5. Iron deficiency anemia 6. ~9 weeks Activity: Resume your previous activity Bathing Comment: Keep your IV covered, clean, & dry during showers Exercise/Sports: Wait until after follow-up appointment Driving/Machine Use: Resume 1 day after discharge Non-emergency contact: Primary Care Provider, Desktop Specialist and Urologist Call non-emergency contact if: you have any medication questions, your symptoms worsen, your pain is not controlled, your pain is worsening and you have a fever Follow-up/Referrals: [facility] [Provider Group] (for any primary care needs & acute needs you can visit [facility] on campus Follow up with [facility] in 7-10 days ) Hawa Card MD, FACOG [Physician] - (please see [facility] OB for care related to your ; follow-up 1-2 weeks.) Paul Urias DO [Physician] - (2 weeks for ongoing surveillance of urinary tract issues, kidney abscess, stent, etc. ) Diet: Regular Ambulatory Orders: Complete Blood Count with Diff (Timed) Timeframe: 20220914 Location: Determined by Patient Ordered By: Carl Jeong Comprehensive Metabolic Panel (Routine) Timeframe: 20220914 Location: Determined by Patient Ordered By: Carl Jeong C Reactive Protein (Routine) Timeframe: 20220914 Location: Determined by Patient Ordered By: Carl Jeong Addtl Attending Provider Instructions: Ms Earl, You were hospitalized at [facility] for a urinary tract infection with left-sided kidney abscess. Fortunately the kidney abscess is SMALLER than when it was first discovered a few weeks ago. During your stay you improved with IV antibiotics and IV fluids. Your fevers & chills along with pain resolved. You were seen by [facility] Urology & [facility] collateral specialist. Ultrasound confirmed that everything was stable from an OB standpoint (ultrasound of baby was normal, etc). Ultrasound confirmed that your left-sided ureteral stent was in proper position. Your kidney function during the stay was normal. Blood cultures were negative (ie - no infection was found in the blood). You were seen by infectious diseases. They recommended a 2-week course of rocephin (Ceftriaxone) which is an IV antibiotic. The 2-week course started on 09/04/22. You will complete 10 more days of this IV antibiotic after discharge at the Medical Treatment Unit ("MTU") at [facility]. The entrance is located in the BACK of the hospital. Enter through the [facility] entrance. Each day you will receive your IV antibiotic then can head home after. Your first dose of this antibiotic is on 09/08/22 at 930am. On 09/14/22, you will need repeat blood work to ensure your kidney function and other labs are staying normal. These labs can be drawn at [facility] when you come for your IV antibiotics. Bring the lab slips with you on this date. [facility] Urology is happy to follow you in the Urology clinic here in [place]. They will follow your kidney abscess, ureteral stent, kidney stone, etc. A repeat ultrasound to look at the kidney abscess is needed in 2 weeks. This will be arranged and you will be notified about date/time/location of this test. In addition, the [facility] Urology office will be contacting you to set up a follow-up appointment for all of the urinary tract issues. This follow-up will be in approximately 2 weeks. If you do not hear from their office within 48-72 hours of hospital discharge please call their office to confirm your follow-up appointment. Please see Dr Hawa Card from [facility] collateral specialist within 1-2 weeks for care. Finally, if you have any acute care needs or other problems the [facility] clinic on campus can assist you. We are no longer allowed to call and make follow-up appointments with [facility] for you. It is your responsibility to call them for follow-up care, if you need such. Additional recommendations - 1. Consider taking a probiotic supplement and/or eat extra yogurt daily over the next 2 weeks to help prevent diarrhea from the antibiotics. Probiotics can be purchased [id number] in the vitamin section at any pharmacy. 2. Take [id number] iron supplement -- ferrous sulfate 325, at least once daily with a glass of orange juice, but up to twice daily is preferred. Iron will make your stools dark, and often will cause constipation. You can have your OB or [facility] follow your iron levels. You will likely need to take this for about 3-4 months. Again, please be sure to have 1 of your doctors follow your iron levels. 3. Continue your vitamin as previous. 4. Throw away any unused oral antibiotics at your home. 5. OK to take tylenol [id number] for aches/pains/fevers but DO NOT TAKE ANTI-INFLAMMATORY PILLS such as motrin, ibuprofen, alleve, naprosyn, aspirin, etc. 6. Please stay WELL-HYDRATED. Good hydration is needed in the setting of any infection, kidney stones, , etc. Return to [facility] if - * you have fevers over 100 degrees * you are having recurrent back pain, abdominal pain, or bladder pain * you are unable to pass your urine * you have large amounts of blood in your urine * you are having vaginal bleeding * you develop severe diarrhea * any other concerns It was our pleasure to care for you at [facility]! Dr Jeong Pending Studies at Discharge: No Stand-Alone Forms: My [facility], Smoking Cessation Medications and DC Order Prescriptions: New ferrous sulfate 325 mg (65 mg iron) Tablet,Delayed Release (Dr/Ec) 325 mg PO BIDM Qty: 60 0RF Rx Instructions: purchase [id number] ceftriaxone 2 gram recon soln 2 g IV DAILY 10 Days Qty: 10 0RF Rx Instructions: first dose on 09/08/22 at Medical Treatment Unit - [facility]. Continued Women's One Daily 18 mg iron-400 mcg-500 mg Ca Tablet 1 tab PO DAILY Discontinued cefuroxime axetil 500 mg tablet 500 mg PO BID Rx Instructions: STARTED 08/26/22 FOR 14 DAYS. Discharge Orders: Discharge Order (Routine); Ordered 09/07/22 Ordered By: Carl Gray/Other Patient Handouts: Having a Ureteral Stent Admission Data Admit Date/Time: 09/03/22 00:47 Attending Provider: Carl Jeong Admit Provider: Lillian Le Primary Care Provider: PCP,NO Other Providers: Tal Matute ; Hawa Card ; Ambrocio Murphy ; Kenia Leroy ; Manoj Laurent ; Noemí Rosenthal ; Smion Farooq ; Jolene Palacios ; Evy Schmidt ; Misty Hickman ; Bucky Cueva ; Brenda Barriso Coding Diagnoses Sepsis A41.9 Sepsis acute organ dysfunction status: unspecified Sepsis type: sepsis due to unspecified organism UTI (urinary tract infection) N30.01 Hematuria presence: with hematuria Urinary tract infection type: acute cystitis Kidney abscess N15.1 Kidney stone on left side N20.0 Z3A.01 Weeks of gestation: less than 8 weeks Hypokalemia E87.6 Iron deficiency anemia D50.9 DVT prophylaxis Z29.9
[2022-09-07] MEDS ORDERED: Nursing to Pharmacy Communication SCH (14:15)
[2022-09-07] MEDS: cefTRIAXone SODIUM 2,000 MG in DEXTROSE 5% 50 ML IV SCH (14:28)
== END 2022-09-07 16:45 | disposition home or self-care (01) | DRG 831 ==
LOC: ED 19:53 → SUATTDRO 09-03 00:47 → 3N 09-03 00:47